=== PATIENT | female | born 1945 | race Caucasian/White ===

== ENCOUNTER 2020-07-21 12:16 | Inpatient (IN) ==
[2020-07-21] MEDS ORDERED: ALBUTEROL 2.5 MG/3 ML NEB RESP TX STA (13:00)
[2020-07-21] MEDS ORDERED: ALBUTEROL 2.5 MG/3 ML NEB RESP TX ONE (13:01)
[2020-07-21 14:02] LABS: Eosinophils % 0.2 % (0.00-10.9); Hematocrit 32.2 VOL% (35.7-47.0); Hemoglobin 9.2 GM/DL (12.0-16.0); Immature Granulocytes % 2.2 %; Lymphocytes # 0.9 10*3/uL (1.4-4.0); Lymphocytes % 19.7 % (21.3-54.2); Mean Corpuscular HGB Conc 28.6 GM/DL (32-36); Mean Corpuscular Volume 84.7 FL (87-102); Mean Platelet Volume 11.7 FL (9.6-12.0); Neutrophils % 69.9 % (38.7-73.9); Platelet Count 67 T/CUMM (130-400); Red Cell Distribution Width 17.1 % (9.3-17.3); White Blood Count 4.5 T/CUMM (4-12)
[2020-07-21 14:17] LABS: PT Patient Result 10.9 SECS (9.8-11.9)
[2020-07-21 14:22] LABS: Lactic Acid 1.1 MMOL/L (0.4-2.0)
[2020-07-21 14:25] LABS: Albumin 2.8 G/DL (3.4-5.0); Bilirubin,Total 1.4 MG/DL (0.2-1.0); Calcium 8.7 MG/DL (8.5-10.1); Osmolality,Calculated 289.1 MOS/KG (273-304); Potassium 5.2 MMOL/L (3.5-5.1); Total Protein 6.3 G/DL (6.4-8.3)
[2020-07-21] MEDS ORDERED: SODIUM CHLORIDE 0.9% 1,000 ML IV STA (14:43)
[2020-07-21] MEDS ORDERED: LEVOFLOXACIN INJ 500 MG in PREMIX 1 EACH IV STA (14:51)
[2020-07-21] MEDS ORDERED: DEXTROSE 50% 25 GM/50 ML VIAL IV PRN (15:21)
[2020-07-21] MEDS ORDERED: ACETAMINOPHEN 325 MG TABLET PO PRN (15:21)
[2020-07-21] MEDS ORDERED: ONDANSETRON 4 MG/2 ML VIAL IV PRN (15:21)
[2020-07-21] MEDS ORDERED: BISACODYL 5 MG TABLET PO PRN (15:21)
[2020-07-21] MEDS ORDERED: GLUCAGON 1 MG VIAL IM PRN (15:21)
[2020-07-21] MEDS ORDERED: tiZANidine 4 MG TABLET PO PRN (15:28)
[2020-07-21] MEDS ORDERED: traZODone 50 MG TABLET PO PRN (15:28)
[2020-07-21] MEDS ORDERED: AZITHROMYCIN INJ 500 MG in SODIUM CHLORIDE 0.9% 250 ML IV ONE (15:30)
[2020-07-21 16:06] LABS: Amorphous Crystals,Urine Occasional /HPF (Few); Bacteria,Urine Moderate /HPF (Few); Bilirubin,Urine Negative (Negative); Blood, Urine Negative (Negative); Glucose,Urine (UA) Negative (Negative); Ketones,Urine Negative (Negative); Nitrite,Urine Negative (Negative); Protein,Urine Negative; Squamous Epithelial Cell,Urine Occasional /HPF (0-10); Urine Appearance CLEAR (Clear); Urine Color Yellow (Yellow); Urine Specific Gravity 1.018 (1.001-1.035); Urine Urobilinogen < 2.0 EU/DL (0.2-1.0); WBC,Urine 15 /HPF (0-6)
[2020-07-21] MEDS: PIPERACILLIN/TAZOBACTAM 3,375 MG in SODIUM CHLORIDE 0.9% 100 ML IV SCH (18:24)
[2020-07-21] MEDS: INSULIN LISPRO 100 UNIT/ML SUBCUT SCH ×2 (18:24→21:16)
[2020-07-21] MEDS: SODIUM CHLORIDE 0.9% 1,000 ML IV SCH (18:34)
[2020-07-21] MEDS: DEXAMETHASONE 4 MG/1 ML VIAL IV SCH (18:34)
[2020-07-21] MEDS: ASCORBIC ACID 500 MG TABLET PO SCH (21:14)
[2020-07-21] MEDS: ENOXAPARIN 30 MG/0.3 ML SYRINGE SUBCUT SCH (21:14)
[2020-07-21] MEDS: CHOLECALCIFEROL 1,000 UNIT TABLET PO SCH (21:15)
[2020-07-21] MEDS: rOPINIRole 1 MG TABLET PO SCH (21:15)
[2020-07-21] MEDS: GABAPENTIN 300 MG CAPSULE PO SCH (21:15)
[2020-07-21] MEDS: MONTELUKAST 10 MG TABLET PO SCH (21:15)
[2020-07-21] MEDS: VITAMIN E PO SCH (21:16)
[2020-07-22] MEDS: PIPERACILLIN/TAZOBACTAM 3,375 MG in SODIUM CHLORIDE 0.9% 100 ML IV SCH ×3 (00:20→16:15)
[2020-07-22 05:44] LABS: Hematocrit 32.1 VOL% (35.7-47.0); Hemoglobin 9.6 GM/DL (12.0-16.0); Immature Granulocytes % 8.3 %; Immature Granulocytes Absolute 0.22 #; Lymphocytes # 0.2 10*3/uL (1.4-4.0); Lymphocytes % 7.9 % (21.3-54.2); Mean Corpuscular HGB Conc 29.9 GM/DL (32-36); Mean Corpuscular Volume 81.9 FL (87-102); Mean Platelet Volume 11.2 FL (9.6-12.0); Monocytes % 1.5 % (1.7-12.7); Neutrophils % 82.3 % (38.7-73.9); Red Blood Count 3.92 MC/CUMM (3.8-5.5); Red Cell Distribution Width 17.1 % (9.3-17.3); White Blood Count 2.7 T/CUMM (4-12)
[2020-07-22 05:47] LABS: Platelet Count 76 T/CUMM (130-400)
[2020-07-22 06:00] LABS: PT Patient Result 10.9 SECS (9.8-11.9)
[2020-07-22 06:25] LABS: Albumin 2.8 G/DL (3.4-5.0); Bilirubin,Total 0.8 MG/DL (0.2-1.0); Calcium 9.1 MG/DL (8.5-10.1); Osmolality,Calculated 299.7 MOS/KG (273-304); Total Protein 6.9 G/DL (6.4-8.3)
[2020-07-22 06:32] LABS: Ferritin 160.1 ng/ml (8-252)
[2020-07-22 06:40] LABS: Lymphocytes 5 % (20-55); Metamyelocytes 1 %; Segmented Neutrophils 92 % (50-85); Total Cells Counted 100
[2020-07-22 06:41] LABS: Platelet Estimate Decreased
[2020-07-22] MEDS: INSULIN LISPRO 100 UNIT/ML SUBCUT SCH ×4 (07:27→20:31)
[2020-07-22] MEDS: ALBUTEROL 2.5 MG/3 ML NEB RESP TX PRN ×2 (08:30→18:20)
[2020-07-22] MEDS: DEXAMETHASONE 4 MG/1 ML VIAL IV SCH (09:02)
[2020-07-22] MEDS: PANTOPRAZOLE 40 MG TABLET PO SCH (09:03)
[2020-07-22] MEDS: ASCORBIC ACID 500 MG TABLET PO SCH ×2 (09:03→20:30)
[2020-07-22] MEDS: VENLAFAXINE XR 75 MG CAPSULE PO SCH (09:03)
[2020-07-22] MEDS: CYANOCOBALAMIN 500 MCG TABLET PO SCH (09:03)
[2020-07-22] MEDS: AZITHROMYCIN 250 MG TABLET PO SCH (09:03)
[2020-07-22] MEDS: GABAPENTIN 300 MG CAPSULE PO SCH ×2 (09:04→20:30)
[2020-07-22] MEDS: ZINC GLUCONATE 50 MG TABLET PO SCH (09:04)
[2020-07-22] MEDS: SODIUM CHLORIDE 0.9% 1,000 ML IV SCH (12:15)
[2020-07-22] MEDS: VITAMIN E PO SCH (18:34)
[2020-07-22] MEDS: MONTELUKAST 10 MG TABLET PO SCH (20:30)
[2020-07-22] MEDS: CHOLECALCIFEROL 1,000 UNIT TABLET PO SCH (20:30)
[2020-07-22] MEDS: rOPINIRole 1 MG TABLET PO SCH (20:30)
[2020-07-22] MEDS: ENOXAPARIN 30 MG/0.3 ML SYRINGE SUBCUT SCH (20:31)
[2020-07-23] MEDS: SODIUM CHLORIDE 0.9% 1,000 ML IV SCH
[2020-07-23 05:50] LABS: Hematocrit 29.8 VOL% (35.7-47.0); Hemoglobin 8.8 GM/DL (12.0-16.0); Immature Granulocytes Absolute 0.16 #; Lymphocytes # 0.5 10*3/uL (1.4-4.0); Lymphocytes % 17.6 % (21.3-54.2); Mean Corpuscular HGB Conc 29.5 GM/DL (32-36); Mean Corpuscular Volume 82.8 FL (87-102); Mean Platelet Volume 11.3 FL (9.6-12.0); Monocytes % 5.6 % (1.7-12.7); Neutrophils % 70.8 % (38.7-73.9); Platelet Count 83 T/CUMM (130-400); Red Cell Distribution Width 17.2 % (9.3-17.3); White Blood Count 2.7 T/CUMM (4-12)
[2020-07-23 06:12] LABS: Albumin 2.8 G/DL (3.4-5.0); Bilirubin,Total 1.2 MG/DL (0.2-1.0); Calcium 9.6 MG/DL (8.5-10.1); Hypochromasia 1+; Lymphocytes 18 % (20-55); Microcytosis 1+; Osmolality,Calculated 301.1 MOS/KG (273-304); Ovalocytes Slight; Platelet Estimate Decreased; Potassium 4.7 MMOL/L (3.5-5.1); Segmented Neutrophils 77 % (50-85); Total Cells Counted 100; Total Protein 6.6 G/DL (6.4-8.3)
[2020-07-23] MEDS: INSULIN LISPRO 100 UNIT/ML SUBCUT SCH ×4 (08:34→21:06)
[2020-07-23] MEDS: ASCORBIC ACID 500 MG TABLET PO SCH ×2 (08:35→21:07)
[2020-07-23] MEDS: CYANOCOBALAMIN 500 MCG TABLET PO SCH (08:35)
[2020-07-23] MEDS: ZINC GLUCONATE 50 MG TABLET PO SCH (08:35)
[2020-07-23] MEDS: AZITHROMYCIN 250 MG TABLET PO SCH (08:35)
[2020-07-23] MEDS: VENLAFAXINE XR 75 MG CAPSULE PO SCH (08:36)
[2020-07-23] MEDS: GABAPENTIN 300 MG CAPSULE PO SCH ×2 (08:36→21:07)
[2020-07-23] MEDS: PANTOPRAZOLE 40 MG TABLET PO SCH (08:36)
[2020-07-23] MEDS: oxyCODONE/ACETAMINOPHEN 5-325 MG TABLET PO PRN (08:36)
[2020-07-23] MEDS: DEXAMETHASONE 4 MG/1 ML VIAL IV SCH (08:37)
[2020-07-23] MEDS: PIPERACILLIN/TAZOBACTAM 3,375 MG in SODIUM CHLORIDE 0.9% 100 ML IV SCH ×3 (08:37→16:43)
[2020-07-23] MEDS: ALBUTEROL/IPRATROPIUM 3 ML NEB RESP TX SCH ×3 (12:50→19:02)
[2020-07-23] MEDS: MONTELUKAST 10 MG TABLET PO SCH (21:07)
[2020-07-23] MEDS: rOPINIRole 1 MG TABLET PO SCH (21:07)
[2020-07-23] MEDS: CHOLECALCIFEROL 1,000 UNIT TABLET PO SCH (21:07)
[2020-07-23] MEDS: ATORVASTATIN 10 MG TABLET PO SCH (21:07)
[2020-07-23] MEDS: ENOXAPARIN 30 MG/0.3 ML SYRINGE SUBCUT SCH (21:07)
[2020-07-24] MEDS: PIPERACILLIN/TAZOBACTAM 3,375 MG in SODIUM CHLORIDE 0.9% 100 ML IV SCH ×3 (00:12→21:38)
[2020-07-24] MEDS: ALBUTEROL/IPRATROPIUM 3 ML NEB RESP TX SCH ×4 (00:27→19:33)
[2020-07-24 06:42] LABS: Hematocrit 30.1 VOL% (35.7-47.0); Hemoglobin 8.8 GM/DL (12.0-16.0); Immature Granulocytes % 4.4 %; Immature Granulocytes Absolute 0.13 #; Lymphocytes # 0.7 10*3/uL (1.4-4.0); Mean Corpuscular HGB Conc 29.2 GM/DL (32-36); Mean Corpuscular Volume 82.7 FL (87-102); Mean Platelet Volume 9.9 FL (9.6-12.0); Monocytes % 6.8 % (1.7-12.7); Neutrophils % 66.8 % (38.7-73.9); Red Blood Count 3.64 MC/CUMM (3.8-5.5); Red Cell Distribution Width 17.5 % (9.3-17.3)
[2020-07-24 06:43] LABS: Platelet Count 95 T/CUMM (130-400)
[2020-07-24 07:08] LABS: Calcium 9.7 MG/DL (8.5-10.1); Osmolality,Calculated 302.8 MOS/KG (273-304)
[2020-07-24] MEDS: INSULIN LISPRO 100 UNIT/ML SUBCUT SCH ×4 (07:55→21:41)
[2020-07-24] MEDS: PANTOPRAZOLE 40 MG TABLET PO SCH (09:04)
[2020-07-24] MEDS: methylPREDNISolone SOD SUC 40 MG/1 ML VIAL IV SCH ×2 (09:04→21:37)
[2020-07-24] MEDS: LOSARTAN 25 MG TABLET PO SCH (09:04)
[2020-07-24] MEDS: AZITHROMYCIN 250 MG TABLET PO SCH (09:04)
[2020-07-24] MEDS: ZINC GLUCONATE 50 MG TABLET PO SCH (09:04)
[2020-07-24] MEDS: GABAPENTIN 300 MG CAPSULE PO SCH ×2 (09:04→21:39)
[2020-07-24] MEDS: ASCORBIC ACID 500 MG TABLET PO SCH ×2 (09:04→21:39)
[2020-07-24] MEDS: VENLAFAXINE XR 75 MG CAPSULE PO SCH (09:04)
[2020-07-24] MEDS: CYANOCOBALAMIN 500 MCG TABLET PO SCH (12:15)
[2020-07-24] MEDS: ENOXAPARIN 30 MG/0.3 ML SYRINGE SUBCUT SCH (21:38)
[2020-07-24] MEDS: oxyCODONE/ACETAMINOPHEN 5-325 MG TABLET PO PRN (21:38)
[2020-07-24] MEDS: ATORVASTATIN 10 MG TABLET PO SCH (21:39)
[2020-07-24] MEDS: CHOLECALCIFEROL 1,000 UNIT TABLET PO SCH (21:39)
[2020-07-24] MEDS: MONTELUKAST 10 MG TABLET PO SCH (21:40)
[2020-07-24] MEDS: rOPINIRole 1 MG TABLET PO SCH (21:40)
[2020-07-25] MEDS: ALBUTEROL/IPRATROPIUM 3 ML NEB RESP TX SCH ×4 (01:05→19:47)
[2020-07-25 06:43] LABS: Osmolality,Calculated 302.3 MOS/KG (273-304); Potassium 4.5 MMOL/L (3.5-5.1)
[2020-07-25 06:51] LABS: Basophils % 0.4 % (0.0-0.8); Eosinophils % 0.4 % (0.00-10.9); Hematocrit 32.7 VOL% (35.7-47.0); Hemoglobin 9.7 GM/DL (12.0-16.0); Immature Granulocytes % 9.8 %; Immature Granulocytes Absolute 0.27 #; Lymphocytes # 0.4 10*3/uL (1.4-4.0); Lymphocytes % 12.7 % (21.3-54.2); Mean Corpuscular HGB Conc 29.7 GM/DL (32-36); Mean Corpuscular Volume 82.8 FL (87-102); Monocytes % 2.9 % (1.7-12.7); NRBC # 0.02 10*3/uL; Neutrophils % 73.8 % (38.7-73.9); Platelet Count 102 T/CUMM (130-400); Red Blood Count 3.95 MC/CUMM (3.8-5.5); Red Cell Distribution Width 17.5 % (9.3-17.3); White Blood Count 2.8 T/CUMM (4-12)
[2020-07-25] MEDS: methylPREDNISolone SOD SUC 40 MG/1 ML VIAL IV SCH ×2 (09:05→20:58)
[2020-07-25] MEDS: PANTOPRAZOLE 40 MG TABLET PO SCH (09:05)
[2020-07-25] MEDS: GABAPENTIN 300 MG CAPSULE PO SCH ×2 (09:05→20:53)
[2020-07-25] MEDS: INSULIN LISPRO 100 UNIT/ML SUBCUT SCH ×4 (09:05→20:55)
[2020-07-25] MEDS: ASCORBIC ACID 500 MG TABLET PO SCH ×2 (09:06→20:53)
[2020-07-25] MEDS: PIPERACILLIN/TAZOBACTAM 3,375 MG in SODIUM CHLORIDE 0.9% 100 ML IV SCH ×2 (09:09→21:05)
[2020-07-25] MEDS: LOSARTAN 25 MG TABLET PO SCH (09:09)
[2020-07-25] MEDS: ZINC GLUCONATE 50 MG TABLET PO SCH (09:09)
[2020-07-25] MEDS: CYANOCOBALAMIN 500 MCG TABLET PO SCH (09:09)
[2020-07-25] MEDS: VENLAFAXINE XR 75 MG CAPSULE PO SCH (09:09)
[2020-07-25] MEDS: AZITHROMYCIN 250 MG TABLET PO SCH (09:09)
[2020-07-25 15:29] LABS: Band Neutrophils 4 % (0-10); Lymphocytes 21 % (20-55); Segmented Neutrophils 71 % (50-85); Total Cells Counted 100
[2020-07-25 15:30] LABS: Hypochromasia 1+; Ovalocytes Slight; Platelet Estimate Adequate
[2020-07-25] MEDS: ATORVASTATIN 10 MG TABLET PO SCH (20:53)
[2020-07-25] MEDS: MONTELUKAST 10 MG TABLET PO SCH (20:53)
[2020-07-25] MEDS: CHOLECALCIFEROL 1,000 UNIT TABLET PO SCH (20:53)
[2020-07-25] MEDS: rOPINIRole 1 MG TABLET PO SCH (20:53)
[2020-07-25] MEDS: ENOXAPARIN 30 MG/0.3 ML SYRINGE SUBCUT SCH (20:55)
[2020-07-25] MEDS ORDERED: INSULIN GLARGINE 100 UNIT/ML SUBCUT SCH (21:00)
[2020-07-25] MEDS ORDERED: BENZONATATE 100 MG CAPSULE PO PRN (23:38)
[2020-07-26] MEDS: ALBUTEROL/IPRATROPIUM 3 ML NEB RESP TX SCH ×4 (01:15→18:59)
[2020-07-26 06:38] LABS: Calcium 10.2 MG/DL (8.5-10.1); Osmolality,Calculated 303.5 MOS/KG (273-304); Potassium 4.5 MMOL/L (3.5-5.1)
[2020-07-26] MEDS: ZINC GLUCONATE 50 MG TABLET PO SCH (08:22)
[2020-07-26] MEDS: GABAPENTIN 300 MG CAPSULE PO SCH ×2 (08:23→20:34)
[2020-07-26] MEDS: VENLAFAXINE XR 75 MG CAPSULE PO SCH (08:23)
[2020-07-26] MEDS: LOSARTAN 25 MG TABLET PO SCH (08:23)
[2020-07-26] MEDS: CYANOCOBALAMIN 500 MCG TABLET PO SCH (08:23)
[2020-07-26] MEDS: ASCORBIC ACID 500 MG TABLET PO SCH ×2 (08:23→20:33)
[2020-07-26] MEDS: PIPERACILLIN/TAZOBACTAM 3,375 MG in SODIUM CHLORIDE 0.9% 100 ML IV SCH ×2 (08:24→20:40)
[2020-07-26] MEDS: methylPREDNISolone SOD SUC 40 MG/1 ML VIAL IV SCH ×2 (08:24→20:36)
[2020-07-26] MEDS: INSULIN LISPRO 100 UNIT/ML SUBCUT SCH ×4 (08:24→20:38)
[2020-07-26] MEDS: PANTOPRAZOLE 40 MG TABLET PO SCH (08:24)
[2020-07-26] MEDS ORDERED: INSULIN GLARGINE 100 UNIT/ML SUBCUT SCH (11:10)
[2020-07-26] MEDS: MONTELUKAST 10 MG TABLET PO SCH (20:33)
[2020-07-26] MEDS: rOPINIRole 1 MG TABLET PO SCH (20:34)
[2020-07-26] MEDS: ATORVASTATIN 10 MG TABLET PO SCH (20:34)
[2020-07-26] MEDS: CHOLECALCIFEROL 1,000 UNIT TABLET PO SCH (20:34)
[2020-07-26] MEDS: ENOXAPARIN 30 MG/0.3 ML SYRINGE SUBCUT SCH (20:38)
[2020-07-27] MEDS: ALBUTEROL/IPRATROPIUM 3 ML NEB RESP TX SCH ×2 (00:46→07:13)
[2020-07-27 04:49] LABS: Albumin 2.8 G/DL (3.4-5.0); Bilirubin,Total 0.5 MG/DL (0.2-1.0); Calcium 9.6 MG/DL (8.5-10.1); Osmolality,Calculated 305.3 MOS/KG (273-304); Potassium 4.6 MMOL/L (3.5-5.1); Total Protein 6.6 G/DL (6.4-8.3)
[2020-07-27 05:05] LABS: Basophils % 0.3 % (0.0-0.8); Hematocrit 31.8 VOL% (35.7-47.0); Hemoglobin 9.2 GM/DL (12.0-16.0); Immature Granulocytes % 8.6 %; Immature Granulocytes Absolute 0.31 #; Lymphocytes # 0.4 10*3/uL (1.4-4.0); Mean Corpuscular HGB Conc 28.9 GM/DL (32-36); Mean Corpuscular Volume 83.7 FL (87-102); Mean Platelet Volume 9.9 FL (9.6-12.0); Monocytes % 2.5 % (1.7-12.7); NRBC # 0.05 10*3/uL; Neutrophils % 76.6 % (38.7-73.9); Platelet Count 107 T/CUMM (130-400); Red Cell Distribution Width 17.3 % (9.3-17.3); White Blood Count 3.6 T/CUMM (4-12)
[2020-07-27 07:13] LABS: Band Neutrophils 4 % (0-10); Lymphocytes 9 % (20-55); Nucleated Red Blood Cells 1 (0-5); Segmented Neutrophils 84 % (50-85); Total Cells Counted 100
[2020-07-27 07:14] LABS: Microcytosis 1+; Ovalocytes 2+; Platelet Estimate Normal
[2020-07-27 07:15] LABS: Tear Drop Cells Few
[2020-07-27 07:16] LABS: Polychromasia Slight
[2020-07-27 07:38] VITALS: BP 114/70
[2020-07-27] MEDS: PIPERACILLIN/TAZOBACTAM 3,375 MG in SODIUM CHLORIDE 0.9% 100 ML IV SCH (08:35)
[2020-07-27] MEDS: LOSARTAN 25 MG TABLET PO SCH (08:36)
[2020-07-27] MEDS: CYANOCOBALAMIN 500 MCG TABLET PO SCH (08:36)
[2020-07-27] MEDS: PANTOPRAZOLE 40 MG TABLET PO SCH (08:36)
[2020-07-27] MEDS: VENLAFAXINE XR 75 MG CAPSULE PO SCH (08:36)
[2020-07-27] MEDS: GABAPENTIN 300 MG CAPSULE PO SCH (08:36)
[2020-07-27] MEDS: methylPREDNISolone SOD SUC 40 MG/1 ML VIAL IV SCH (08:37)
[2020-07-27] MEDS: INSULIN LISPRO 100 UNIT/ML SUBCUT SCH (08:37)
[2020-07-27] MEDS: ASCORBIC ACID 500 MG TABLET PO SCH (08:37)
[2020-07-27] MEDS: ZINC GLUCONATE 50 MG TABLET PO SCH (08:37)
== END 2020-07-27 13:38 | disposition home or self-care (01) | DRG 194 ==
LOC: N.EDINP 12:16 → N.ED 12:16 → SUATTDRO 15:21 → N.EDINP 17:39 → N.5E 18:08
PROVIDERS: ADMIT Internal Medicine; ATTEND Internal Medicine

== ENCOUNTER 2020-11-17 03:44 | Observation (INO) ==
[2020-11-17 04:54] LABS: Alanine Aminotransferase 23 U/L (13-56); Albumin 3.5 G/DL (3.4-5.0); Alkaline Phosphatase 79 U/L (45-117); Amylase 112 U/L (25-115); Aspartate Amino Transferase 14 U/L (0-37); Bilirubin,Total < 0.39 MG/DL (0.2-1.0); Blood Urea Nitrogen 44 MG/DL (7-18); Calcium 10.1 MG/DL (8.5-10.1); Carbon Dioxide 26 MMOL/L (21-32); Glucose 168 MG/DL (74-106); Osmolality,Calculated 291.5 MOS/KG (273-304); Potassium 3.8 MMOL/L (3.5-5.1); Sodium 139 MMOL/L (136-145)
[2020-11-17 04:55] LABS: Estimated Glom Filtration Rate 0 ML/MIN
[2020-11-17] MEDS ORDERED: PIPERACILLIN/TAZOBACTAM 3,375 MG in SODIUM CHLORIDE 0.9% 100 ML IV STA (05:07)
[2020-11-17] MEDS ORDERED: ONDANSETRON 4 MG/2 ML VIAL IV STA (05:09)
[2020-11-17] MEDS ORDERED: MEPERIDINE 25 MG/1 ML VIAL IV STA (05:09)
[2020-11-17 05:47] LABS: Eosinophils % 0.5 % (0.00-10.9); Hematocrit 37.6 VOL% (35.7-47.0); Immature Granulocytes % 1.5 %; Immature Granulocytes Absolute 0.06 #; Lymphocytes # 0.7 10*3/uL (1.4-4.0); Lymphocytes % 18.3 % (21.3-54.2); Mean Corpuscular HGB Conc 29.5 GM/DL (32-36); Mean Corpuscular Volume 80.3 FL (87-102); Monocytes % 8.2 % (1.7-12.7); Neutrophils % 71.5 % (38.7-73.9); Red Blood Count 4.68 MC/CUMM (3.8-5.5); Red Cell Distribution Width 14.8 % (9.3-17.3); White Blood Count 3.9 T/CUMM (4-12)
[2020-11-17 05:49] LABS: Hemoglobin 11.1 GM/DL (12.0-16.0)
[2020-11-17 05:50] LABS: Platelet Count 81 T/CUMM (130-400)
[2020-11-17 05:54] LABS: Hypochromasia Slight; Microcytosis Slight; Ovalocytes Slight; Platelet Estimate Decreased
[2020-11-17] MEDS ORDERED: ACETAMINOPHEN 325 MG TABLET PO PRN (06:16)
[2020-11-17] MEDS ORDERED: GLUCAGON 1 MG VIAL IM PRN ×2 (06:16)
[2020-11-17] MEDS ORDERED: ONDANSETRON 4 MG/2 ML VIAL IV PRN (06:16)
[2020-11-17] MEDS ORDERED: DEXTROSE 50% 25 GM/50 ML VIAL IV PRN ×2 (06:16)
[2020-11-17] MEDS: CLINDAMYCIN INJ 600 MG/50 ML PREMIX IV SCH ×3 (07:43→21:59)
[2020-11-17] MEDS ORDERED: PANTOPRAZOLE 40 MG TABLET PO SCH (09:00)
[2020-11-17] MEDS: HEPARIN 5,000 UNIT/1 ML VIAL SUBCUT SCH ×2 (09:08→21:13)
[2020-11-17] MEDS: INSULIN LISPRO 100 UNIT/ML SUBCUT SCH ×4 (09:08→21:12)
[2020-11-17] MEDS: CHLORHEXIDINE 0.12% ORAL RINSE 60 ML BOTTLE SWISH/SPIT SCH ×2 (12:46→21:23)
[2020-11-17] MEDS ORDERED: tiZANidine 4 MG TABLET PO PRN (15:10)
[2020-11-17] MEDS ORDERED: ATORVASTATIN 10 MG TABLET PO SCH (21:00)
[2020-11-18] MEDS: CLINDAMYCIN INJ 600 MG/50 ML PREMIX IV SCH (05:49)
[2020-11-18] MEDS: HEPARIN 5,000 UNIT/1 ML VIAL SUBCUT SCH (06:14)
[2020-11-18 06:40] LABS: Eosinophils % 0.7 % (0.00-10.9); Hematocrit 36.3 VOL% (35.7-47.0); Immature Granulocytes % 1.4 %; Immature Granulocytes Absolute 0.04 #; Lymphocytes # 0.8 10*3/uL (1.4-4.0); Lymphocytes % 26.4 % (21.3-54.2); Mean Corpuscular HGB Conc 30.3 GM/DL (32-36); Mean Corpuscular Volume 79.4 FL (87-102); Monocytes % 11.3 % (1.7-12.7); Neutrophils % 60.2 % (38.7-73.9); Platelet Count 63 T/CUMM (130-400); Red Blood Count 4.57 MC/CUMM (3.8-5.5); Red Cell Distribution Width 14.9 % (9.3-17.3); White Blood Count 2.8 T/CUMM (4-12)
[2020-11-18 06:49] LABS: Alanine Aminotransferase 17 U/L (13-56); Alkaline Phosphatase 68 U/L (45-117); Aspartate Amino Transferase 11 U/L (0-37); Bilirubin,Total < 0.39 MG/DL (0.2-1.0); Blood Urea Nitrogen 35 MG/DL (7-18); Calcium 9.7 MG/DL (8.5-10.1); Carbon Dioxide 24 MMOL/L (21-32); Estimated Glom Filtration Rate 25 ML/MIN; Glucose 159 MG/DL (74-106); Osmolality,Calculated 285.7 MOS/KG (273-304); Potassium 3.6 MMOL/L (3.5-5.1); Sodium 138 MMOL/L (136-145); Total Protein 6.5 G/DL (6.4-8.2)
[2020-11-18 06:59] LABS: Hypochromasia Slight; Microcytosis Slight; Ovalocytes Slight; Platelet Estimate Decreased
[2020-11-18] MEDS: CHLORHEXIDINE 0.12% ORAL RINSE 60 ML BOTTLE SWISH/SPIT SCH (08:00)
[2020-11-18] MEDS: INSULIN LISPRO 100 UNIT/ML SUBCUT SCH ×2 (08:00→11:56)
[2020-11-18] MEDS ORDERED: PANTOPRAZOLE 40 MG TABLET PO SCH (09:00)
[2020-11-18] MEDS ORDERED: FERROUS SULFATE 325 MG TABLET PO SCH (09:00)
[2020-11-18] MEDS ORDERED: ASPIRIN EC 81 MG TABLET PO SCH (09:00)
[2020-11-18 12:09] VITALS: BP 181/67
== END 2020-11-18 13:21 | disposition home or self-care (01) ==
LOC: SUATTDRO → N.ED 03:44 → N.EDINP 03:44 → SUATTDRO 06:16 → N.5E 07:46
PROVIDERS: ADMIT Internal Medicine; ATTEND Internal Medicine

== ENCOUNTER 2021-04-07 05:31 | Inpatient (IN) ==
[2021-04-07] MEDS ORDERED: SODIUM CHLORIDE 0.9% 1,000 ML IV STA (06:15)
[2021-04-07] MEDS ORDERED: fentaNYL 100 MCG/2 ML VIAL IV STA ×3 (06:15→10:11)
[2021-04-07] MEDS ORDERED: ONDANSETRON 4 MG/2 ML VIAL IV STA ×2 (06:15→07:45)
[2021-04-07 06:42] LABS: Albumin 3.1 G/DL (3.4-5.0); Bilirubin,Total 0.7 MG/DL (0.20-1.00); Calcium 10.5 MG/DL (8.5-10.1); Potassium 3.8 MMOL/L (3.5-5.1); Total Protein 7.3 G/DL (6.4-8.2)
[2021-04-07 07:05] LABS: Basophils % 0.1 % (0.0-0.8); Eosinophils % 0.1 % (0.00-10.9); Hematocrit 40.9 VOL% (35.7-47.0); Hemoglobin 12.2 GM/DL (12.0-16.0); Immature Granulocytes % 1.6 %; Immature Granulocytes Absolute 0.12 #; Lymphocytes # 0.7 10*3/uL (1.4-4.0); Lymphocytes % 9.5 % (21.3-54.2); Mean Corpuscular HGB Conc 29.8 GM/DL (32-36); Mean Corpuscular Volume 77.8 FL (87-102); Monocytes % 5.8 % (1.7-12.7); Neutrophils % 82.9 % (38.7-73.9); Platelet Count 95 T/CUMM (130-400); Red Blood Count 5.26 MC/CUMM (3.8-5.5); Red Cell Distribution Width 15.6 % (9.3-17.3); White Blood Count 7.4 T/CUMM (4-12)
[2021-04-07] MEDS ORDERED: metroNIDAZOLE INJ 500 MG/100 ML PREMIX IV STA (07:11)
[2021-04-07] MEDS ORDERED: LEVOFLOXACIN INJ 500 MG/100 ML PREMIX IV STA (07:11)
[2021-04-07 07:12] LABS: Hypochromasia 1+; Microcytosis 1+
[2021-04-07 07:13] LABS: Ovalocytes Few; Platelet Estimate Decreased
[2021-04-07 08:00] LABS: Bacteria,Urine Many /HPF (Few); Bilirubin,Urine Negative (Negative); Blood, Urine Negative (Negative); Glucose,Urine (UA) Negative (Negative); Ketones,Urine 5 mg/dL (Negative); Nitrite,Urine Negative (Negative); Protein,Urine 100 MG/DL; RBC,Urine 1 /HPF (0-4); Squamous Epithelial Cell,Urine Occasional /HPF (0-10); Urine Appearance Slightly Hazy (Clear); Urine Color Yellow (Yellow); Urine Specific Gravity 1.017 (1.001-1.035); Urine Urobilinogen < 2.0 EU/DL (0.2-1.0)
[2021-04-07] MEDS: LACTATED RINGERS 1,000 ML IV SCH ×2 (08:15→15:18)
[2021-04-07] MEDS ORDERED: ALBUTEROL/IPRATROPIUM 3 ML NEB RESP TX PRN (09:06)
[2021-04-07] MEDS ORDERED: ONDANSETRON 4 MG/2 ML VIAL IV PRN (09:06)
[2021-04-07] MEDS ORDERED: GLUCAGON 1 MG VIAL IM PRN (09:16)
[2021-04-07] MEDS ORDERED: DEXTROSE 50% 25 GM/50 ML VIAL IV PRN (09:16)
[2021-04-07] MEDS ORDERED: LEVOFLOXACIN INJ 750 MG/150 ML PREMIX IV SCH (09:30)
[2021-04-07] MEDS ORDERED: ALBUTEROL 2.5 MG/3 ML NEB RESP TX PRN (12:18)
[2021-04-07] MEDS: oxyCODONE/ACETAMINOPHEN 5-325 MG TABLET PO PRN ×2 (13:48→17:58)
[2021-04-07] MEDS: INSULIN LISPRO 100 UNIT/ML SUBCUT SCH ×2 (14:27→16:30)
[2021-04-07] MEDS: metroNIDAZOLE INJ 500 MG/100 ML PREMIX IV SCH ×2 (14:58→16:30)
[2021-04-07] MEDS: rOPINIRole 1 MG TABLET PO SCH (18:39)
[2021-04-07] MEDS: tiZANidine 4 MG TABLET PO SCH (21:45)
[2021-04-07] MEDS: MONTELUKAST 10 MG TABLET PO SCH (21:45)
[2021-04-08] MEDS: LACTATED RINGERS 1,000 ML IV SCH ×2 (00:25→11:22)
[2021-04-08] MEDS: metroNIDAZOLE INJ 500 MG/100 ML PREMIX IV SCH ×3 (05:01→17:17)
[2021-04-08 05:49] LABS: Hematocrit 34.8 VOL% (35.7-47.0); Immature Granulocytes % 1.9 %; Immature Granulocytes Absolute 0.19 #; Lymphocytes # 0.6 10*3/uL (1.4-4.0); Lymphocytes % 5.6 % (21.3-54.2); Mean Corpuscular HGB Conc 28.4 GM/DL (32-36); Mean Corpuscular Volume 80.7 FL (87-102); Mean Platelet Volume 11.6 FL (9.6-12.0); Monocytes % 6.1 % (1.7-12.7); Neutrophils % 86.4 % (38.7-73.9); Platelet Count 79 T/CUMM (130-400); Red Blood Count 4.31 MC/CUMM (3.8-5.5); Red Cell Distribution Width 15.3 % (9.3-17.3); White Blood Count 10.3 T/CUMM (4-12)
[2021-04-08 05:52] LABS: Hemoglobin 9.9 GM/DL (12.0-16.0)
[2021-04-08 06:10] LABS: Hypochromasia 1+
[2021-04-08 06:11] LABS: Microcytosis 1+; Ovalocytes Few; Platelet Estimate Decreased
[2021-04-08 06:12] LABS: Calcium 9.3 MG/DL (8.5-10.1); Osmolality,Calculated 287.7 MOS/KG (273-304); Potassium 4.1 MMOL/L (3.5-5.1)
[2021-04-08] MEDS: VENLAFAXINE XR 75 MG CAPSULE PO SCH (09:50)
[2021-04-08] MEDS: PANTOPRAZOLE 40 MG TABLET PO SCH (09:50)
[2021-04-08] MEDS: FERROUS SULFATE 325 MG TABLET PO SCH (09:51)
[2021-04-08] MEDS: tiZANidine 4 MG TABLET PO SCH ×2 (09:51→21:33)
[2021-04-08] MEDS: ASPIRIN EC 81 MG TABLET PO SCH (09:51)
[2021-04-08] MEDS: LOSARTAN 25 MG TABLET PO SCH (09:51)
[2021-04-08] MEDS: INSULIN LISPRO 100 UNIT/ML SUBCUT SCH ×3 (11:22→16:57)
[2021-04-08] MEDS: oxyCODONE/ACETAMINOPHEN 5-325 MG TABLET PO PRN (13:36)
[2021-04-08] MEDS: rOPINIRole 1 MG TABLET PO SCH (21:33)
[2021-04-08] MEDS: MONTELUKAST 10 MG TABLET PO SCH (21:33)
[2021-04-08] MEDS: traZODone 50 MG TABLET PO PRN (21:34)
[2021-04-09] MEDS: rOPINIRole 1 MG TABLET PO SCH ×2 (02:43→22:36)
[2021-04-09] MEDS: metroNIDAZOLE INJ 500 MG/100 ML PREMIX IV SCH ×3 (02:50→17:39)
[2021-04-09] MEDS: LACTATED RINGERS 1,000 ML IV SCH ×5 (05:08→22:39)
[2021-04-09] MEDS: INSULIN LISPRO 100 UNIT/ML SUBCUT SCH ×3 (07:59→17:30)
[2021-04-09] MEDS ORDERED: INFLUENZA VIRUS VACCINE 0.5 ML SYRINGE IM ONE (08:00)
[2021-04-09] MEDS: tiZANidine 4 MG TABLET PO SCH ×2 (08:31→22:36)
[2021-04-09] MEDS: VENLAFAXINE XR 75 MG CAPSULE PO SCH (08:31)
[2021-04-09] MEDS: PANTOPRAZOLE 40 MG TABLET PO SCH (08:31)
[2021-04-09] MEDS: LOSARTAN 25 MG TABLET PO SCH (08:31)
[2021-04-09] MEDS: FERROUS SULFATE 325 MG TABLET PO SCH (08:31)
[2021-04-09] MEDS: ASPIRIN EC 81 MG TABLET PO SCH (08:32)
[2021-04-09] MEDS: LEVOFLOXACIN INJ 500 MG/100 ML PREMIX IV SCH (10:34)
[2021-04-09] MEDS: oxyCODONE/ACETAMINOPHEN 5-325 MG TABLET PO PRN ×2 (17:43→22:38)
[2021-04-09] MEDS: MONTELUKAST 10 MG TABLET PO SCH (22:36)
[2021-04-10] MEDS: metroNIDAZOLE INJ 500 MG/100 ML PREMIX IV SCH ×3 (01:30→17:55)
[2021-04-10] MEDS: oxyCODONE/ACETAMINOPHEN 5-325 MG TABLET PO PRN ×4 (04:13→20:54)
[2021-04-10 08:10] LABS: Hemoglobin 9.1 GM/DL (12.0-16.0); Immature Granulocytes % 1.9 %; Immature Granulocytes Absolute 0.08 #; Lymphocytes # 0.5 10*3/uL (1.4-4.0); Lymphocytes % 11.3 % (21.3-54.2); Mean Corpuscular HGB Conc 29.4 GM/DL (32-36); Mean Corpuscular Volume 80.3 FL (87-102); Mean Platelet Volume 11.5 FL (9.6-12.0); Monocytes % 5.5 % (1.7-12.7); Neutrophils % 81.3 % (38.7-73.9); Platelet Count 94 T/CUMM (130-400); Red Blood Count 3.86 MC/CUMM (3.8-5.5); Red Cell Distribution Width 15.1 % (9.3-17.3); White Blood Count 4.2 T/CUMM (4-12)
[2021-04-10 08:16] LABS: Calcium 9.2 MG/DL (8.5-10.1); Potassium 3.7 MMOL/L (3.5-5.1)
[2021-04-10 08:27] LABS: Hypochromasia 1+; Microcytosis 1+; Ovalocytes Few; Tear Drop Cells Slight
[2021-04-10 08:28] LABS: Platelet Estimate Decreased
[2021-04-10] MEDS: PANTOPRAZOLE 40 MG TABLET PO SCH (09:25)
[2021-04-10] MEDS: tiZANidine 4 MG TABLET PO SCH ×2 (09:25→20:54)
[2021-04-10] MEDS: LOSARTAN 25 MG TABLET PO SCH (09:25)
[2021-04-10] MEDS: VENLAFAXINE XR 75 MG CAPSULE PO SCH (09:26)
[2021-04-10] MEDS: ASPIRIN EC 81 MG TABLET PO SCH (09:26)
[2021-04-10] MEDS: FERROUS SULFATE 325 MG TABLET PO SCH (09:26)
[2021-04-10] MEDS: LACTATED RINGERS 1,000 ML IV SCH ×3 (09:31→21:40)
[2021-04-10] MEDS: INSULIN LISPRO 100 UNIT/ML SUBCUT SCH ×3 (10:09→16:15)
[2021-04-10] MEDS: traZODone 50 MG TABLET PO PRN (20:54)
[2021-04-10] MEDS: rOPINIRole 1 MG TABLET PO SCH (20:54)
[2021-04-10] MEDS: MONTELUKAST 10 MG TABLET PO SCH (20:54)
[2021-04-11] MEDS: metroNIDAZOLE INJ 500 MG/100 ML PREMIX IV SCH ×3 (02:40→17:11)
[2021-04-11] MEDS: oxyCODONE/ACETAMINOPHEN 5-325 MG TABLET PO PRN ×3 (04:48→20:58)
[2021-04-11 05:15] LABS: Hematocrit 31.3 VOL% (35.7-47.0); Hemoglobin 9.2 GM/DL (12.0-16.0); Immature Granulocytes Absolute 0.07 #; Lymphocytes # 0.6 10*3/uL (1.4-4.0); Lymphocytes % 16.2 % (21.3-54.2); Mean Corpuscular HGB Conc 29.4 GM/DL (32-36); Mean Corpuscular Volume 79.8 FL (87-102); Mean Platelet Volume 10.5 FL (9.6-12.0); Monocytes % 6.9 % (1.7-12.7); Neutrophils % 74.9 % (38.7-73.9); Red Blood Count 3.92 MC/CUMM (3.8-5.5); Red Cell Distribution Width 15.1 % (9.3-17.3); White Blood Count 3.5 T/CUMM (4-12)
[2021-04-11 05:30] LABS: Platelet Count 97 T/CUMM (130-400)
[2021-04-11 05:39] LABS: Calcium 9.4 MG/DL (8.5-10.1); Osmolality,Calculated 288.7 MOS/KG (273-304); Potassium 4.1 MMOL/L (3.5-5.1)
[2021-04-11 05:43] LABS: Albumin 2.3 G/DL (3.4-5.0); Bilirubin,Total 0.5 MG/DL (0.20-1.00); Calcium 9.2 MG/DL (8.5-10.1); Osmolality,Calculated 292.4 MOS/KG (273-304); Potassium 4.1 MMOL/L (3.5-5.1); Total Protein 5.9 G/DL (6.4-8.2)
[2021-04-11 05:47] LABS: Hypochromasia 1+; Microcytosis 1+
[2021-04-11 05:48] LABS: Ovalocytes 1+; Platelet Estimate Decreased
[2021-04-11] MEDS: LEVOFLOXACIN INJ 500 MG/100 ML PREMIX IV SCH (09:15)
[2021-04-11] MEDS: INSULIN LISPRO 100 UNIT/ML SUBCUT SCH ×3 (09:16→17:10)
[2021-04-11] MEDS: PANTOPRAZOLE 40 MG TABLET PO SCH (09:16)
[2021-04-11] MEDS: tiZANidine 4 MG TABLET PO SCH ×2 (09:16→20:58)
[2021-04-11] MEDS: VENLAFAXINE XR 75 MG CAPSULE PO SCH (09:16)
[2021-04-11] MEDS: FERROUS SULFATE 325 MG TABLET PO SCH (09:16)
[2021-04-11] MEDS: LOSARTAN 25 MG TABLET PO SCH (09:16)
[2021-04-11] MEDS: ASPIRIN EC 81 MG TABLET PO SCH (09:16)
[2021-04-11] MEDS: LACTATED RINGERS 1,000 ML IV SCH ×4 (09:18→22:54)
[2021-04-11] MEDS: BISACODYL 5 MG TABLET PO PRN (20:57)
[2021-04-11] MEDS: MONTELUKAST 10 MG TABLET PO SCH (20:57)
[2021-04-11] MEDS: rOPINIRole 1 MG TABLET PO SCH (20:57)
[2021-04-11] MEDS: traZODone 50 MG TABLET PO PRN (20:57)
[2021-04-12] MEDS: metroNIDAZOLE INJ 500 MG/100 ML PREMIX IV SCH ×3 (01:13→17:23)
[2021-04-12] MEDS: LACTATED RINGERS 1,000 ML IV SCH ×3 (02:11→17:23)
[2021-04-12] MEDS: oxyCODONE/ACETAMINOPHEN 5-325 MG TABLET PO PRN ×4 (04:32→21:17)
[2021-04-12] MEDS: INSULIN LISPRO 100 UNIT/ML SUBCUT SCH ×3 (07:31→16:28)
[2021-04-12] MEDS: VENLAFAXINE XR 75 MG CAPSULE PO SCH (08:39)
[2021-04-12] MEDS: LOSARTAN 25 MG TABLET PO SCH (08:39)
[2021-04-12] MEDS: PANTOPRAZOLE 40 MG TABLET PO SCH (08:40)
[2021-04-12] MEDS: FERROUS SULFATE 325 MG TABLET PO SCH (08:40)
[2021-04-12] MEDS: ASPIRIN EC 81 MG TABLET PO SCH (08:40)
[2021-04-12] MEDS: tiZANidine 4 MG TABLET PO SCH ×2 (08:40→21:17)
[2021-04-12] MEDS: traZODone 50 MG TABLET PO PRN (21:17)
[2021-04-12] MEDS: rOPINIRole 1 MG TABLET PO SCH (21:17)
[2021-04-12] MEDS: BISACODYL 5 MG TABLET PO PRN (21:17)
[2021-04-12] MEDS: MONTELUKAST 10 MG TABLET PO SCH (21:17)
[2021-04-13] MEDS: oxyCODONE/ACETAMINOPHEN 5-325 MG TABLET PO PRN ×4 (02:32→20:16)
[2021-04-13] MEDS: metroNIDAZOLE INJ 500 MG/100 ML PREMIX IV SCH ×2 (02:33→08:38)
[2021-04-13] MEDS: LACTATED RINGERS 1,000 ML IV SCH ×2 (02:35→08:48)
[2021-04-13 05:13] LABS: Eosinophils % 0.3 % (0.00-10.9); Hemoglobin 8.1 GM/DL (12.0-16.0); Immature Granulocytes % 3.8 %; Immature Granulocytes Absolute 0.13 #; Lymphocytes # 0.7 10*3/uL (1.4-4.0); Lymphocytes % 19.5 % (21.3-54.2); Mean Corpuscular HGB Conc 28.9 GM/DL (32-36); Mean Corpuscular Volume 80.9 FL (87-102); Mean Platelet Volume 10.7 FL (9.6-12.0); Monocytes % 8.8 % (1.7-12.7); Neutrophils % 67.6 % (38.7-73.9); Red Blood Count 3.46 MC/CUMM (3.8-5.5); Red Cell Distribution Width 15.6 % (9.3-17.3); White Blood Count 3.4 T/CUMM (4-12)
[2021-04-13 05:14] LABS: Platelet Count 84 T/CUMM (130-400)
[2021-04-13 05:33] LABS: Eosinophils 1 % (0-10); Hypochromasia 1+; Lymphocytes 22 % (20-55); Segmented Neutrophils 71 % (50-85); Total Cells Counted 100
[2021-04-13 05:34] LABS: Atypical Lymphocytes Few; Microcytosis 1+; Ovalocytes 1+; Platelet Estimate Decreased
[2021-04-13 05:45] LABS: Calcium 8.8 MG/DL (8.5-10.1); Osmolality,Calculated 289.1 MOS/KG (273-304)
[2021-04-13] MEDS: INSULIN LISPRO 100 UNIT/ML SUBCUT SCH ×3 (07:14→16:37)
[2021-04-13] MEDS: LOSARTAN 25 MG TABLET PO SCH (08:37)
[2021-04-13] MEDS: ASPIRIN EC 81 MG TABLET PO SCH (08:37)
[2021-04-13] MEDS: PANTOPRAZOLE 40 MG TABLET PO SCH (08:37)
[2021-04-13] MEDS: FERROUS SULFATE 325 MG TABLET PO SCH (08:37)
[2021-04-13] MEDS: tiZANidine 4 MG TABLET PO SCH ×2 (08:37→20:17)
[2021-04-13] MEDS: VENLAFAXINE XR 75 MG CAPSULE PO SCH (08:37)
[2021-04-13] MEDS: LEVOFLOXACIN INJ 500 MG/100 ML PREMIX IV SCH (09:46)
[2021-04-13] MEDS ORDERED: FUROSEMIDE 40 MG/4 ML VIAL IV ONE (10:42)
[2021-04-13] MEDS: MEROPENEM 500 MG in SODIUM CHLORIDE 0.9% 100 ML IV SCH ×2 (14:59→23:19)
[2021-04-13] MEDS: traZODone 50 MG TABLET PO PRN (20:16)
[2021-04-13] MEDS: MONTELUKAST 10 MG TABLET PO SCH (20:16)
[2021-04-13] MEDS: rOPINIRole 1 MG TABLET PO SCH (20:16)
[2021-04-14] MEDS: oxyCODONE/ACETAMINOPHEN 5-325 MG TABLET PO PRN ×2 (07:24→15:06)
[2021-04-14] MEDS: MEROPENEM 500 MG in SODIUM CHLORIDE 0.9% 100 ML IV SCH ×3 (07:25→23:40)
[2021-04-14] MEDS: INSULIN LISPRO 100 UNIT/ML SUBCUT SCH ×3 (07:46→17:10)
[2021-04-14] MEDS: FERROUS SULFATE 325 MG TABLET PO SCH (09:12)
[2021-04-14] MEDS: LOSARTAN 25 MG TABLET PO SCH (09:12)
[2021-04-14] MEDS: tiZANidine 4 MG TABLET PO SCH ×2 (09:12→21:25)
[2021-04-14] MEDS: VENLAFAXINE XR 75 MG CAPSULE PO SCH (09:12)
[2021-04-14] MEDS: PANTOPRAZOLE 40 MG TABLET PO SCH (09:12)
[2021-04-14] MEDS: ASPIRIN EC 81 MG TABLET PO SCH (09:12)
[2021-04-14] MEDS: rOPINIRole 1 MG TABLET PO SCH (21:25)
[2021-04-14] MEDS: MONTELUKAST 10 MG TABLET PO SCH (21:25)
[2021-04-14] MEDS: ACETAMINOPHEN 325 MG TABLET PO PRN (21:25)
[2021-04-14] MEDS: traZODone 50 MG TABLET PO PRN (21:25)
[2021-04-15] MEDS: MEROPENEM 500 MG in SODIUM CHLORIDE 0.9% 100 ML IV SCH ×2 (08:57→16:51)
[2021-04-15] MEDS: INSULIN LISPRO 100 UNIT/ML SUBCUT SCH ×3 (08:58→16:53)
[2021-04-15] MEDS: ACETAMINOPHEN 325 MG TABLET PO PRN (08:58)
[2021-04-15] MEDS: FERROUS SULFATE 325 MG TABLET PO SCH (14:18)
[2021-04-15] MEDS: ASPIRIN EC 81 MG TABLET PO SCH (14:18)
[2021-04-15] MEDS: PANTOPRAZOLE 40 MG TABLET PO SCH (14:18)
[2021-04-15] MEDS: LOSARTAN 25 MG TABLET PO SCH (14:18)
[2021-04-15] MEDS: VENLAFAXINE XR 75 MG CAPSULE PO SCH (14:19)
[2021-04-15] MEDS: tiZANidine 4 MG TABLET PO SCH ×2 (14:19→21:13)
[2021-04-15] MEDS: oxyCODONE/ACETAMINOPHEN 5-325 MG TABLET PO PRN ×2 (14:20→21:16)
[2021-04-15] MEDS: FUROSEMIDE 20 MG TABLET PO PRN (16:56)
[2021-04-15] MEDS: MONTELUKAST 10 MG TABLET PO SCH (21:13)
[2021-04-15] MEDS: rOPINIRole 1 MG TABLET PO SCH (21:13)
[2021-04-15] MEDS: traZODone 50 MG TABLET PO PRN (21:13)
[2021-04-16] MEDS: MEROPENEM 500 MG in SODIUM CHLORIDE 0.9% 100 ML IV SCH ×4 (00:07→22:33)
[2021-04-16] MEDS ORDERED: CLINDAMYCIN INJ 900 MG/50 ML PREMIX IV ONE ×2 (07:23→15:45)
[2021-04-16 08:30] LABS: Eosinophils % 0.6 % (0.00-10.9); Hematocrit 30.9 VOL% (35.7-47.0); Hemoglobin 9.1 GM/DL (12.0-16.0); Immature Granulocytes % 5.4 %; Immature Granulocytes Absolute 0.09 #; Lymphocytes # 0.5 10*3/uL (1.4-4.0); Lymphocytes % 32.5 % (21.3-54.2); Mean Corpuscular HGB Conc 29.4 GM/DL (32-36); Mean Corpuscular Volume 79.4 FL (87-102); Mean Platelet Volume 10.4 FL (9.6-12.0); Monocytes % 15.1 % (1.7-12.7); Neutrophils % 46.4 % (38.7-73.9); Platelet Count 94 T/CUMM (130-400); Red Blood Count 3.89 MC/CUMM (3.8-5.5); Red Cell Distribution Width 15.5 % (9.3-17.3); White Blood Count 1.7 T/CUMM (4-12)
[2021-04-16 08:50] LABS: Calcium 9.2 MG/DL (8.5-10.1); Osmolality,Calculated 284.4 MOS/KG (273-304); Potassium 4.8 MMOL/L (3.5-5.1)
[2021-04-16 08:52] LABS: Atypical Lymphocytes Few; Hypochromasia 1+; Lymphocytes 26 % (20-55); Microcytosis 1+; Platelet Estimate Decreased; Segmented Neutrophils 58 % (50-85); Total Cells Counted 100
[2021-04-16] MEDS: ASPIRIN EC 81 MG TABLET PO SCH (10:02)
[2021-04-16] MEDS: LOSARTAN 25 MG TABLET PO SCH (10:02)
[2021-04-16] MEDS: PANTOPRAZOLE 40 MG TABLET PO SCH (10:03)
[2021-04-16] MEDS: tiZANidine 4 MG TABLET PO SCH ×2 (10:03→21:09)
[2021-04-16] MEDS: VENLAFAXINE XR 75 MG CAPSULE PO SCH (10:03)
[2021-04-16] MEDS: FERROUS SULFATE 325 MG TABLET PO SCH (10:03)
[2021-04-16] MEDS: oxyCODONE/ACETAMINOPHEN 5-325 MG TABLET PO PRN ×2 (10:42→23:57)
[2021-04-16] MEDS: INSULIN LISPRO 100 UNIT/ML SUBCUT SCH ×3 (10:47→16:18)
[2021-04-16] MEDS: FUROSEMIDE 20 MG TABLET PO PRN (12:00)
[2021-04-16] MEDS ORDERED: ROCURONIUM 50 MG/5 ML VIAL IV ONE ×2 (15:44→16:52)
[2021-04-16] MEDS ORDERED: LIDOCAINE 2% 5 ML VIAL ONE (15:44)
[2021-04-16] MEDS ORDERED: fentaNYL 100 MCG/2 ML VIAL ONE ×2 (15:44→17:03)
[2021-04-16] MEDS ORDERED: DEXAMETHASONE 4 MG/1 ML VIAL ONE (15:44)
[2021-04-16] MEDS ORDERED: SEVOFLURANE 1 UNIT/15 MINUTE INH ONE ×8 (15:44→18:25)
[2021-04-16] MEDS ORDERED: MIDAZOLAM 2 MG/2 ML VIAL ONE (15:44)
[2021-04-16] MEDS ORDERED: propofoL 200 MG/20 ML VIAL IV ONE (15:44)
[2021-04-16] MEDS ORDERED: ONDANSETRON 4 MG/2 ML VIAL ONE (15:44)
[2021-04-16] MEDS ORDERED: PROMETHAZINE INJ 25 MG in SODIUM CHLORIDE 0.9% 50 ML IV PRN (16:45)
[2021-04-16] MEDS ORDERED: diphenhydrAMINE 50 MG/1 ML VIAL IV PRN (16:45)
[2021-04-16] MEDS ORDERED: HYDROmorphone 2 MG/1 ML VIAL IV PRN (16:45)
[2021-04-16] MEDS ORDERED: ONDANSETRON 4 MG/2 ML VIAL IV PRN (16:45)
[2021-04-16] MEDS ORDERED: GLYCOPYRROLATE 0.4 MG/2 ML VIAL ONE (17:53)
[2021-04-16] MEDS ORDERED: NEOSTIGMINE 10 MG/10 ML VIAL ONE (17:53)
[2021-04-16] MEDS ORDERED: NALOXONE 0.4 MG/ML VIAL IV PRN (18:24)
[2021-04-16] MEDS ORDERED: HYDROmorphone PCA 30 MG/30 ML SYRINGE IV SCH (18:30)
[2021-04-16] MEDS: MEPERIDINE 25 MG/1 ML VIAL IV PRN ×2 (18:35→18:45)
[2021-04-16] MEDS ORDERED: PROMETHAZINE 25 MG/1 ML VIAL ONE (18:42)
[2021-04-16 19:01] LABS: Bilirubin,Urine Negative (Negative); Blood, Urine Negative (Negative); Glucose,Urine (UA) Negative (Negative); Hyaline Casts,Urine 1 /LPF (0-3); Ketones,Urine Negative (Negative); Mucus,Urine Occasional /LPF (Occasional); Nitrite,Urine Negative (Negative); Protein,Urine Negative; RBC,Urine 2 /HPF (0-4); Squamous Epithelial Cell,Urine Occasional /HPF (0-10); Urine Appearance CLEAR (Clear); Urine Color Straw (Yellow); Urine Specific Gravity 1.006 (1.001-1.035); Urine Urobilinogen < 2.0 EU/DL (0.2-1.0)
[2021-04-16] MEDS: rOPINIRole 1 MG TABLET PO SCH (21:09)
[2021-04-16] MEDS: MONTELUKAST 10 MG TABLET PO SCH (21:09)
[2021-04-16] MEDS: HYDROmorphone 2 MG/1 ML VIAL IV PRN (22:29)
[2021-04-17] MEDS: HYDROmorphone 2 MG/1 ML VIAL IV PRN ×5 (02:37→19:09)
[2021-04-17] MEDS: oxyCODONE/ACETAMINOPHEN 5-325 MG TABLET PO PRN (03:46)
[2021-04-17] MEDS: MEROPENEM 500 MG in SODIUM CHLORIDE 0.9% 100 ML IV SCH ×3 (06:00→23:40)
[2021-04-17 09:09] LABS: Hematocrit 27.6 VOL% (35.7-47.0); Hemoglobin 8.1 GM/DL (12.0-16.0); Immature Granulocytes % 2.5 %; Lymphocytes # 0.6 10*3/uL (1.4-4.0); Lymphocytes % 15.8 % (21.3-54.2); Mean Corpuscular HGB Conc 29.3 GM/DL (32-36); Mean Corpuscular Volume 78.9 FL (87-102); Mean Platelet Volume 9.7 FL (9.6-12.0); Monocytes % 9.7 % (1.7-12.7); Platelet Count 110 T/CUMM (130-400); Red Cell Distribution Width 15.7 % (9.3-17.3); White Blood Count 3.9 T/CUMM (4-12)
[2021-04-17 09:18] LABS: Calcium 8.8 MG/DL (8.5-10.1); Osmolality,Calculated 287.7 MOS/KG (273-304); Potassium 4.9 MMOL/L (3.5-5.1)
[2021-04-17] MEDS: INSULIN LISPRO 100 UNIT/ML SUBCUT SCH ×3 (09:51→16:14)
[2021-04-17] MEDS: tiZANidine 4 MG TABLET PO SCH ×2 (09:52→20:49)
[2021-04-17] MEDS: VENLAFAXINE XR 75 MG CAPSULE PO SCH (09:52)
[2021-04-17] MEDS: LOSARTAN 25 MG TABLET PO SCH (09:53)
[2021-04-17] MEDS: PANTOPRAZOLE 40 MG TABLET PO SCH (09:53)
[2021-04-17] MEDS: FERROUS SULFATE 325 MG TABLET PO SCH (09:54)
[2021-04-17] MEDS: rOPINIRole 1 MG TABLET PO SCH (20:48)
[2021-04-17] MEDS: MONTELUKAST 10 MG TABLET PO SCH (20:48)
[2021-04-17] MEDS: traZODone 50 MG TABLET PO PRN (20:49)
[2021-04-18] MEDS: HYDROmorphone 2 MG/1 ML VIAL IV PRN ×2 (00:13→08:59)
[2021-04-18] MEDS: LACTATED RINGERS 1,000 ML IV SCH ×3 (01:16→22:43)
[2021-04-18] MEDS: MEROPENEM 500 MG in SODIUM CHLORIDE 0.9% 100 ML IV SCH ×3 (07:16→23:13)
[2021-04-18] MEDS: oxyCODONE/ACETAMINOPHEN 5-325 MG TABLET PO PRN ×3 (07:23→21:12)
[2021-04-18] MEDS: INSULIN LISPRO 100 UNIT/ML SUBCUT SCH ×3 (07:54→17:10)
[2021-04-18] MEDS: PANTOPRAZOLE 40 MG TABLET PO SCH (08:52)
[2021-04-18] MEDS: tiZANidine 4 MG TABLET PO SCH ×2 (08:53→21:12)
[2021-04-18] MEDS: VENLAFAXINE XR 75 MG CAPSULE PO SCH (08:53)
[2021-04-18] MEDS: LOSARTAN 25 MG TABLET PO SCH (08:53)
[2021-04-18] MEDS: FERROUS SULFATE 325 MG TABLET PO SCH (08:53)
[2021-04-18] MEDS: traZODone 50 MG TABLET PO PRN (21:11)
[2021-04-18] MEDS: MONTELUKAST 10 MG TABLET PO SCH (21:12)
[2021-04-18] MEDS: rOPINIRole 1 MG TABLET PO SCH (21:12)
[2021-04-19] MEDS: oxyCODONE/ACETAMINOPHEN 5-325 MG TABLET PO PRN ×3 (05:30→21:03)
[2021-04-19 05:45] LABS: Hematocrit 22.7 VOL% (35.7-47.0); Immature Granulocytes % 3.4 %; Immature Granulocytes Absolute 0.12 #; Lymphocytes # 0.7 10*3/uL (1.4-4.0); Mean Corpuscular HGB Conc 27.8 GM/DL (32-36); Mean Corpuscular Volume 81.7 FL (87-102); Mean Platelet Volume 10.5 FL (9.6-12.0); Monocytes % 9.8 % (1.7-12.7); Neutrophils % 67.8 % (38.7-73.9); Platelet Count 114 T/CUMM (130-400); Red Blood Count 2.78 MC/CUMM (3.8-5.5); Red Cell Distribution Width 15.9 % (9.3-17.3); White Blood Count 3.6 T/CUMM (4-12)
[2021-04-19 06:09] LABS: Calcium 8.3 MG/DL (8.5-10.1); Osmolality,Calculated 288.4 MOS/KG (273-304); Potassium 4.3 MMOL/L (3.5-5.1)
[2021-04-19 06:27] LABS: Hemoglobin 6.3 GM/DL (12.0-16.0)
[2021-04-19 06:49] LABS: Hypochromasia 3+; Microcytosis 2+; Ovalocytes Few
[2021-04-19 06:50] LABS: Elliptocytes Few; Platelet Estimate Adequate
[2021-04-19 06:58] LABS: Hematocrit 21.6 VOL% (35.7-47.0)
[2021-04-19 07:04] LABS: Hemoglobin 6.1 GM/DL (12.0-16.0)
[2021-04-19] MEDS ORDERED: SODIUM CHLORIDE 0.9% 1,000 ML IV PRN (07:15)
[2021-04-19] MEDS: LACTATED RINGERS 1,000 ML IV SCH (07:53)
[2021-04-19] MEDS: MEROPENEM 500 MG in SODIUM CHLORIDE 0.9% 100 ML IV SCH ×3 (08:03→23:15)
[2021-04-19] MEDS: INSULIN LISPRO 100 UNIT/ML SUBCUT SCH ×3 (08:10→19:25)
[2021-04-19] MEDS: FERROUS SULFATE 325 MG TABLET PO SCH (09:47)
[2021-04-19] MEDS: tiZANidine 4 MG TABLET PO SCH ×2 (09:47→20:58)
[2021-04-19] MEDS: LOSARTAN 25 MG TABLET PO SCH (09:47)
[2021-04-19] MEDS: VENLAFAXINE XR 75 MG CAPSULE PO SCH (09:48)
[2021-04-19] MEDS: PANTOPRAZOLE 40 MG TABLET PO SCH (09:48)
[2021-04-19] MEDS: MONTELUKAST 10 MG TABLET PO SCH (20:58)
[2021-04-19] MEDS: rOPINIRole 1 MG TABLET PO SCH (20:58)
[2021-04-19] MEDS: traZODone 50 MG TABLET PO PRN (20:59)
[2021-04-19 22:58] LABS: Hematocrit 26.8 VOL% (35.7-47.0); Hemoglobin 7.9 GM/DL (12.0-16.0)
[2021-04-20 05:57] LABS: Eosinophils % 0.3 % (0.00-10.9); Hematocrit 29.3 VOL% (35.7-47.0); Hemoglobin 8.7 GM/DL (12.0-16.0); Immature Granulocytes % 5.7 %; Immature Granulocytes Absolute 0.18 #; Lymphocytes # 0.6 10*3/uL (1.4-4.0); Mean Corpuscular HGB Conc 29.7 GM/DL (32-36); Mean Corpuscular Volume 82.8 FL (87-102); Mean Platelet Volume 10.7 FL (9.6-12.0); Monocytes % 10.1 % (1.7-12.7); Neutrophils % 64.9 % (38.7-73.9); Platelet Count 113 T/CUMM (130-400); Red Blood Count 3.54 MC/CUMM (3.8-5.5); White Blood Count 3.2 T/CUMM (4-12)
[2021-04-20 06:32] LABS: Calcium 8.5 MG/DL (8.5-10.1); Osmolality,Calculated 291.1 MOS/KG (273-304); Potassium 4.6 MMOL/L (3.5-5.1)
[2021-04-20 06:34] LABS: Anisocytosis 2+; Band Neutrophils 6 % (0-10); Burr Cells Few; Lymphocytes 18 % (20-55); Ovalocytes 1+; Platelet Estimate Adequate; Segmented Neutrophils 66 % (50-85); Total Cells Counted 100
[2021-04-20] MEDS: MEROPENEM 500 MG in SODIUM CHLORIDE 0.9% 100 ML IV SCH ×3 (07:42→23:21)
[2021-04-20] MEDS: ASPIRIN EC 81 MG TABLET PO SCH (08:07)
[2021-04-20] MEDS: tiZANidine 4 MG TABLET PO SCH ×2 (08:07→20:31)
[2021-04-20] MEDS: PANTOPRAZOLE 40 MG TABLET PO SCH (08:07)
[2021-04-20] MEDS: VENLAFAXINE XR 75 MG CAPSULE PO SCH (08:07)
[2021-04-20] MEDS: LOSARTAN 25 MG TABLET PO SCH (08:07)
[2021-04-20] MEDS: FERROUS SULFATE 325 MG TABLET PO SCH (08:07)
[2021-04-20] MEDS: FUROSEMIDE 20 MG TABLET PO PRN (08:07)
[2021-04-20] MEDS: LACTATED RINGERS 1,000 ML IV SCH ×2 (08:12→17:13)
[2021-04-20] MEDS: INSULIN LISPRO 100 UNIT/ML SUBCUT SCH ×3 (08:14→17:13)
[2021-04-20] MEDS: oxyCODONE/ACETAMINOPHEN 5-325 MG TABLET PO PRN ×2 (13:16→20:33)
[2021-04-20] MEDS: rOPINIRole 1 MG TABLET PO SCH (20:31)
[2021-04-20] MEDS: traZODone 50 MG TABLET PO PRN (20:31)
[2021-04-20] MEDS: MONTELUKAST 10 MG TABLET PO SCH (20:31)
[2021-04-21 05:37] LABS: Basophils % 0.3 % (0.0-0.8); Eosinophils % 0.3 % (0.00-10.9); Hematocrit 31.7 VOL% (35.7-47.0); Hemoglobin 9.3 GM/DL (12.0-16.0); Immature Granulocytes % 4.1 %; Immature Granulocytes Absolute 0.12 #; Lymphocytes # 0.8 10*3/uL (1.4-4.0); Lymphocytes % 26.4 % (21.3-54.2); Mean Corpuscular HGB Conc 29.3 GM/DL (32-36); Mean Corpuscular Volume 83.4 FL (87-102); Neutrophils % 57.9 % (38.7-73.9); Platelet Count 133 T/CUMM (130-400); Red Cell Distribution Width 16.1 % (9.3-17.3); White Blood Count 2.9 T/CUMM (4-12)
[2021-04-21 05:52] LABS: Calcium 8.5 MG/DL (8.5-10.1); Osmolality,Calculated 280.7 MOS/KG (273-304)
[2021-04-21] MEDS: oxyCODONE/ACETAMINOPHEN 5-325 MG TABLET PO PRN ×3 (06:19→21:51)
[2021-04-21] MEDS: LACTATED RINGERS 1,000 ML IV SCH ×2 (07:22→11:54)
[2021-04-21] MEDS: INSULIN LISPRO 100 UNIT/ML SUBCUT SCH ×3 (07:23→16:16)
[2021-04-21] MEDS: tiZANidine 4 MG TABLET PO SCH (08:13)
[2021-04-21] MEDS: PANTOPRAZOLE 40 MG TABLET PO SCH (08:13)
[2021-04-21] MEDS: LOSARTAN 25 MG TABLET PO SCH (08:14)
[2021-04-21] MEDS: VENLAFAXINE XR 75 MG CAPSULE PO SCH (08:14)
[2021-04-21] MEDS: ASPIRIN EC 81 MG TABLET PO SCH (08:14)
[2021-04-21] MEDS: FERROUS SULFATE 325 MG TABLET PO SCH (08:14)
[2021-04-21] MEDS: FUROSEMIDE 20 MG TABLET PO PRN (08:17)
[2021-04-21] MEDS ORDERED: MAGNESIUM SULF RIDER 2 GM/50 ML PREMIX IV PRN (09:59)
[2021-04-21] MEDS ORDERED: MAGNESIUM SULF RIDER 4 GM/100 ML PREMIX IV PRN (09:59)
[2021-04-21] MEDS ORDERED: FUROSEMIDE 20 MG/2 ML VIAL IV ONE (12:10)
[2021-04-21] MEDS: CIPROFLOXACIN 500 MG TABLET PO SCH ×2 (14:36→21:51)
[2021-04-21] MEDS: metroNIDAZOLE 500 MG TABLET PO SCH ×2 (14:37→16:16)
[2021-04-21] MEDS: FUROSEMIDE 20 MG TABLET PO SCH (16:16)
[2021-04-21] MEDS: MONTELUKAST 10 MG TABLET PO SCH (21:50)
[2021-04-21] MEDS: rOPINIRole 1 MG TABLET PO SCH (21:51)
[2021-04-21] MEDS: traZODone 50 MG TABLET PO PRN (21:51)
[2021-04-22] MEDS: ACETAMINOPHEN 325 MG TABLET PO PRN (03:22)
[2021-04-22] MEDS: oxyCODONE/ACETAMINOPHEN 5-325 MG TABLET PO PRN ×2 (03:25→09:41)
[2021-04-22] MEDS: metroNIDAZOLE 500 MG TABLET PO SCH ×2 (09:34→12:47)
[2021-04-22] MEDS: FERROUS SULFATE 325 MG TABLET PO SCH (09:35)
[2021-04-22] MEDS: FUROSEMIDE 20 MG TABLET PO SCH (09:36)
[2021-04-22] MEDS: ASPIRIN EC 81 MG TABLET PO SCH (09:37)
[2021-04-22] MEDS: CIPROFLOXACIN 500 MG TABLET PO SCH (09:38)
[2021-04-22] MEDS: PANTOPRAZOLE 40 MG TABLET PO SCH (09:38)
[2021-04-22] MEDS: LOSARTAN 25 MG TABLET PO SCH (09:38)
[2021-04-22] MEDS: VENLAFAXINE XR 75 MG CAPSULE PO SCH (09:39)
[2021-04-22] MEDS: INSULIN LISPRO 100 UNIT/ML SUBCUT SCH ×2 (10:54→14:08)
[2021-04-22 11:27] VITALS: BP 145/50
== END 2021-04-22 14:47 | disposition home health service (06) | DRG 330 ==
LOC: EDBD → EDUNIT# → N.ED 05:31 → N.EDINP 09:06 → N.3E 13:55
PROVIDERS: ADMIT Student in an Organized Health Care Education/Training Program; ATTEND Student in an Organized Health Care Education/Training Program

== ENCOUNTER 2021-09-30 14:27 | Inpatient (IN) ==
[2021-09-30] MEDS ORDERED: SODIUM CHLORIDE 0.9% 1,000 ML IV STA (16:44)
[2021-09-30 17:12] LABS: Mucus,Urine Occasional /LPF (Occasional); RBC,Urine 2 /HPF (0-4); Squamous Epithelial Cell,Urine Occasional /HPF (0-10)
[2021-09-30 17:13] LABS: Bilirubin,Urine Negative (Negative); Blood, Urine Negative (Negative); Glucose,Urine (UA) 100 mg/dL (Negative); Ketones,Urine Negative (Negative); Nitrite,Urine Negative (Negative); Protein,Urine Trace mg/dL (Negative); Urine Appearance Clear (Clear); Urine Color Yellow (Yellow); Urine Specific Gravity 1.015 (1.001-1.035); Urine Urobilinogen 0.2 eU/dL (<2.0)
[2021-09-30 17:42] LABS: Barbiturates Screen,Urine Negative (Negative); Benzodiazepines Screen,Urine Negative (Negative); Cannabinoid Screen,Urine Negative (Negative); Opiate Screen,Urine Negative (Negative); Phencyclidine Screen,Urine Negative (Negative)
[2021-09-30 18:08] LABS: Hematocrit 38.2 VOL% (35.7-47.0); Immature Granulocytes % 0.9 %; Immature Granulocytes Absolute 0.04 #; Mean Corpuscular HGB Conc 28.8 GM/DL (32-36); Mean Corpuscular Volume 80.6 FL (87-102); Monocytes # 0.2 10*3/uL (0.11-0.8); Monocytes % 5.3 % (1.7-12.7); Neutrophils % 70.8 % (38.7-73.9); Platelet Count 66 T/CUMM (130-400); Red Blood Count 4.74 MC/CUMM (3.8-5.5); Red Cell Distribution Width 15.3 % (9.3-17.3); White Blood Count 4.4 T/CUMM (4-12)
[2021-09-30 18:10] LABS: Albumin 3.5 G/DL (3.4-5.0); Bilirubin,Total 0.4 MG/DL (0.20-1.00); Calcium 11.4 MG/DL (8.5-10.1); Potassium 3.9 MMOL/L (3.5-5.1); Total Protein 6.9 G/DL (6.4-8.2)
[2021-09-30] MEDS ORDERED: CIPROFLOXACIN INJ 400 MG/200 ML PREMIX IV STA (18:19)
[2021-09-30 18:27] LABS: Anisocytosis 1+; Hypochromia 1+; Microcytosis 1+; Platelet Estimate Decreased
[2021-09-30] MEDS ORDERED: DEXTROSE 50% 25 GM/50 ML VIAL IV PRN (18:35)
[2021-09-30] MEDS ORDERED: ONDANSETRON 4 MG/2 ML VIAL IV PRN (18:35)
[2021-09-30] MEDS ORDERED: GLUCAGON 1 MG VIAL IM PRN ×2 (18:35)
[2021-09-30] MEDS ORDERED: ACETAMINOPHEN 325 MG TABLET PO PRN (18:35)
[2021-09-30] MEDS ORDERED: FUROSEMIDE 20 MG TABLET PO PRN (18:42)
[2021-09-30] MEDS ORDERED: DEXTROSE 10% 250 ML BAG IV PRN (18:46)
[2021-09-30] MEDS ORDERED: ALBUTEROL 2.5 MG/3 ML NEB RESP TX PRN (19:00)
[2021-09-30] MEDS ORDERED: hydrALAZINE 20 MG/1 ML VIAL IV STA (19:23)
[2021-09-30] MEDS ORDERED: tiZANidine 4 MG TABLET PO SCH (21:00)
[2021-09-30] MEDS: MONTELUKAST 10 MG TABLET PO SCH (21:17)
[2021-09-30] MEDS: ATORVASTATIN 10 MG TABLET PO SCH (21:17)
[2021-09-30] MEDS: oxyCODONE/ACETAMINOPHEN 5-325 MG TABLET PO SCH (21:18)
[2021-09-30] MEDS: rOPINIRole 1 MG TABLET PO SCH (21:18)
[2021-09-30] MEDS: ENOXAPARIN 30 MG/0.3 ML SYRINGE SUBCUT SCH (21:18)
[2021-09-30] MEDS: INSULIN REGULAR 100 UNIT/ML SUBCUT SCH (21:18)
[2021-10-01 05:17] LABS: Eosinophils % 0.3 % (0.00-10.9); Hematocrit 33.9 VOL% (35.7-47.0); Immature Granulocytes % 0.8 %; Immature Granulocytes Absolute 0.03 #; Lymphocytes # 1.1 10*3/uL (1.4-4.0); Lymphocytes % 27.1 % (21.3-54.2); Mean Corpuscular HGB Conc 29.5 GM/DL (32-36); Mean Corpuscular Volume 79.2 FL (87-102); Monocytes # 0.3 10*3/uL (0.11-0.8); Monocytes % 8.5 % (1.7-12.7); Neutrophils % 63.3 % (38.7-73.9); Platelet Count 74 T/CUMM (130-400); Red Blood Count 4.28 MC/CUMM (3.8-5.5); Red Cell Distribution Width 15.4 % (9.3-17.3); White Blood Count 3.9 T/CUMM (4-12)
[2021-10-01 05:40] LABS: Albumin 3.1 G/DL (3.4-5.0); Bilirubin,Total 0.4 MG/DL (0.20-1.00); Calcium 10.4 MG/DL (8.5-10.1); Osmolality,Calculated 291.5 MOS/KG (273-304); Potassium 3.9 MMOL/L (3.5-5.1); Total Protein 6.1 G/DL (6.4-8.2)
[2021-10-01 05:46] LABS: Platelet Estimate Decreased
[2021-10-01 05:47] LABS: Elliptocytes 1+
[2021-10-01] MEDS: oxyCODONE/ACETAMINOPHEN 5-325 MG TABLET PO SCH ×3 (09:03→22:14)
[2021-10-01] MEDS: PANTOPRAZOLE 40 MG TABLET PO SCH (09:04)
[2021-10-01] MEDS: CYANOCOBALAMIN 500 MCG TABLET PO SCH (09:05)
[2021-10-01] MEDS: LOSARTAN 25 MG TABLET PO SCH (09:06)
[2021-10-01] MEDS: FERROUS SULFATE 325 MG TABLET PO SCH (09:06)
[2021-10-01] MEDS: ASPIRIN EC 81 MG TABLET PO SCH (09:06)
[2021-10-01] MEDS: VENLAFAXINE XR 75 MG CAPSULE PO SCH (09:07)
[2021-10-01] MEDS: INSULIN REGULAR 100 UNIT/ML SUBCUT SCH ×4 (09:12→20:37)
[2021-10-01] MEDS ORDERED: CIPROFLOXACIN INJ 400 MG/200 ML PREMIX IV SCH (12:30)
[2021-10-01] MEDS: ATORVASTATIN 10 MG TABLET PO SCH (20:36)
[2021-10-01] MEDS: traZODone 50 MG TABLET PO PRN (20:37)
[2021-10-01] MEDS: METHENAMINE HIPPURATE 1 GM TABLET PO SCH (20:37)
[2021-10-01] MEDS: MONTELUKAST 10 MG TABLET PO SCH (20:37)
[2021-10-01] MEDS: rOPINIRole 1 MG TABLET PO SCH (20:37)
[2021-10-01] MEDS: ENOXAPARIN 30 MG/0.3 ML SYRINGE SUBCUT SCH (20:38)
[2021-10-01] MEDS: CHOLECALCIFEROL 1,000 UNIT TABLET PO SCH (20:40)
[2021-10-02 05:34] LABS: Calcium 10.3 MG/DL (8.5-10.1); Osmolality,Calculated 291.5 MOS/KG (273-304); Potassium 4.2 MMOL/L (3.5-5.1)
[2021-10-02 05:55] LABS: Elliptocytes 1+; Platelet Estimate Decreased
[2021-10-02 05:56] LABS: Tear Drop Cells 1+
[2021-10-02 06:02] LABS: Eosinophils % 0.3 % (0.00-10.9); Immature Granulocytes Absolute 0.03 #; Lymphocytes # 1.5 10*3/uL (1.4-4.0); Lymphocytes % 50.2 % (21.3-54.2); Mean Corpuscular HGB Conc 29.6 GM/DL (32-36); Mean Corpuscular Volume 80.5 FL (87-102); Monocytes # 0.3 10*3/uL (0.11-0.8); Monocytes % 11.7 % (1.7-12.7); Neutrophils % 36.8 % (38.7-73.9); Platelet Count 56 T/CUMM (130-400); Red Blood Count 3.99 MC/CUMM (3.8-5.5); Red Cell Distribution Width 15.4 % (9.3-17.3); White Blood Count 2.9 T/CUMM (4-12)
[2021-10-02 06:03] LABS: Hematocrit 32.1 VOL% (35.7-47.0); Hemoglobin 9.5 GM/DL (12.0-16.0)
[2021-10-02 06:37] LABS: Band Neutrophils 1 % (0-10); Lymphocytes 37 % (20-55); Total Cells Counted 100
[2021-10-02 06:38] LABS: Hypochromia 1+
[2021-10-02] MEDS: oxyCODONE/ACETAMINOPHEN 5-325 MG TABLET PO SCH ×3 (08:47→21:50)
[2021-10-02] MEDS: ASPIRIN EC 81 MG TABLET PO SCH (08:47)
[2021-10-02] MEDS: VENLAFAXINE XR 75 MG CAPSULE PO SCH (08:47)
[2021-10-02] MEDS: LOSARTAN 25 MG TABLET PO SCH (08:47)
[2021-10-02] MEDS: METHENAMINE HIPPURATE 1 GM TABLET PO SCH ×2 (08:47→20:20)
[2021-10-02] MEDS: FERROUS SULFATE 325 MG TABLET PO SCH (08:47)
[2021-10-02] MEDS: PANTOPRAZOLE 40 MG TABLET PO SCH (08:47)
[2021-10-02] MEDS: CYANOCOBALAMIN 500 MCG TABLET PO SCH (08:48)
[2021-10-02] MEDS: INSULIN REGULAR 100 UNIT/ML SUBCUT SCH ×4 (14:24→20:20)
[2021-10-02] MEDS: LACTATED RINGERS 1,000 ML IV SCH ×2 (14:30→17:31)
[2021-10-02] MEDS: rOPINIRole 1 MG TABLET PO SCH (20:20)
[2021-10-02] MEDS: ATORVASTATIN 10 MG TABLET PO SCH (20:20)
[2021-10-02] MEDS: CHOLECALCIFEROL 1,000 UNIT TABLET PO SCH (20:20)
[2021-10-02] MEDS: MONTELUKAST 10 MG TABLET PO SCH (20:20)
[2021-10-02] MEDS: traZODone 50 MG TABLET PO PRN (21:49)
[2021-10-03] MEDS: LACTATED RINGERS 1,000 ML IV SCH ×2 (05:00→12:49)
[2021-10-03] MEDS: INSULIN REGULAR 100 UNIT/ML SUBCUT SCH ×2 (08:06→12:48)
[2021-10-03 08:37] LABS: Eosinophils % 0.2 % (0.00-10.9); Hematocrit 36.8 VOL% (35.7-47.0); Hemoglobin 10.6 GM/DL (12.0-16.0); Immature Granulocytes % 1.2 %; Immature Granulocytes Absolute 0.05 #; Lymphocytes % 24.6 % (21.3-54.2); Mean Corpuscular HGB Conc 28.8 GM/DL (32-36); Mean Corpuscular Volume 81.1 FL (87-102); Monocytes # 0.3 10*3/uL (0.11-0.8); Monocytes % 7.1 % (1.7-12.7); Neutrophils % 66.9 % (38.7-73.9); Platelet Count 51 T/CUMM (130-400); Red Blood Count 4.54 MC/CUMM (3.8-5.5); Red Cell Distribution Width 15.3 % (9.3-17.3); White Blood Count 4.1 T/CUMM (4-12)
[2021-10-03 09:17] LABS: Alanine Aminotransferase 31 U/L (13-56); Albumin 3.1 G/DL (3.4-5.0); Alkaline Phosphatase 74 U/L (45-117); Aspartate Amino Transferase 39 U/L (0-37); Bilirubin,Total < 0.39 MG/DL (0.20-1.00); Blood Urea Nitrogen 50 MG/DL (7-18); Calcium 10.4 MG/DL (8.5-10.1); Carbon Dioxide 23 MMOL/L (21-32); Chloride 109 MMOL/L (98-107); Estimated Glom Filtration Rate 19 ML/MIN; Glucose 166 MG/DL (74-106); Osmolality,Calculated 291.7 MOS/KG (273-304); Sodium 138 MMOL/L (136-145); Total Protein 6.5 G/DL (6.4-8.2)
[2021-10-03] MEDS: CYANOCOBALAMIN 500 MCG TABLET PO SCH (10:35)
[2021-10-03] MEDS: PANTOPRAZOLE 40 MG TABLET PO SCH (10:35)
[2021-10-03] MEDS: LOSARTAN 25 MG TABLET PO SCH (10:35)
[2021-10-03] MEDS: FERROUS SULFATE 325 MG TABLET PO SCH (10:35)
[2021-10-03] MEDS: ASPIRIN EC 81 MG TABLET PO SCH (10:35)
[2021-10-03] MEDS: METHENAMINE HIPPURATE 1 GM TABLET PO SCH (10:35)
[2021-10-03] MEDS: oxyCODONE/ACETAMINOPHEN 5-325 MG TABLET PO SCH (10:35)
[2021-10-03] MEDS: VENLAFAXINE XR 75 MG CAPSULE PO SCH (10:35)
[2021-10-03 12:45] VITALS: BP 117/50
== END 2021-10-03 12:47 | disposition home or self-care (01) | DRG 640 ==
LOC: EDUNIT# → EDBD → N.EDINP 14:27 → N.ED 14:27 → N.5E 20:29 → SUATTDRO 10-02 13:33
PROVIDERS: ADMIT Internal Medicine; ATTEND Internal Medicine

== ENCOUNTER 2022-04-04 13:24 | Inpatient (IN) ==
[2022-04-04] MEDS ORDERED: SODIUM CHLORIDE 0.9% 1,000 ML IV STA (14:00)
[2022-04-04] MEDS ORDERED: VANCOMYCIN INJ 1,000 MG in SODIUM CHLORIDE 0.9% 250 ML IV STA (14:00)
[2022-04-04] MEDS ORDERED: PIPERACILLIN/TAZOBACTAM 3,375 MG in SODIUM CHLORIDE 0.9% 100 ML IV STA (14:00)
[2022-04-04 15:08] LABS: Eosinophils % 0.2 % (0.00-10.9); Hematocrit 32.6 VOL% (35.7-47.0); Hemoglobin 9.2 GM/DL (12.0-16.0); Immature Granulocytes % 1.1 %; Immature Granulocytes Absolute 0.05 #; Lymphocytes # 0.8 10*3/uL (1.4-4.0); Lymphocytes % 17.3 % (21.3-54.2); Mean Corpuscular HGB Conc 28.2 GM/DL (32-36); Mean Corpuscular Volume 80.5 FL (87-102); Mean Platelet Volume 11.8 FL (9.6-12.0); Monocytes # 0.3 10*3/uL (0.11-0.8); Monocytes % 6.3 % (1.7-12.7); Neutrophils % 75.1 % (38.7-73.9); Platelet Count 74 T/CUMM (130-400); Red Cell Distribution Width 16.1 % (9.3-17.3); White Blood Count 4.5 T/CUMM (4-12)
[2022-04-04 15:17] LABS: INR 0.9; PT Patient Result 10.4 SECS (10.1-12.1)
[2022-04-04 15:20] LABS: Alanine Aminotransferase 38 U/L (13-56); Albumin 2.8 G/DL (3.4-5.0); Alkaline Phosphatase 82 U/L (45-117); Aspartate Amino Transferase 14 U/L (0-37); Bilirubin,Total < 0.39 MG/DL (0.20-1.00); Blood Urea Nitrogen 39 MG/DL (7-18); Calcium 9.5 MG/DL (8.5-10.1); Carbon Dioxide 23 MMOL/L (21-32); Chloride 112 MMOL/L (98-107); Glucose 197 MG/DL (74-106); Potassium 3.5 MMOL/L (3.5-5.1); Red Blood Count 4.05 MC/CUMM (3.8-5.5); Sodium 143 MMOL/L (136-145); Total Protein 5.9 G/DL (6.4-8.2)
[2022-04-04] MEDS ORDERED: GLUCAGON 1 MG VIAL IM PRN (16:33)
[2022-04-04] MEDS ORDERED: ONDANSETRON 4 MG/2 ML VIAL IV PRN (16:33)
[2022-04-04] MEDS ORDERED: ACETAMINOPHEN 325 MG TABLET PO PRN (16:33)
[2022-04-04] MEDS ORDERED: DEXTROSE 10% 250 ML BAG IV PRN (16:48)
[2022-04-04] MEDS ORDERED: LEVOFLOXACIN INJ 500 MG/100 ML PREMIX IV SCH (17:00)
[2022-04-04] MEDS ORDERED: ALBUTEROL 2.5 MG/3 ML NEB RESP TX PRN (19:00)
[2022-04-04] MEDS: ALBUTEROL/IPRATROPIUM 3 ML NEB RESP TX SCH (19:19)
[2022-04-04] MEDS: tiZANidine 4 MG TABLET PO SCH (21:24)
[2022-04-04] MEDS: busPIRone 15 MG TABLET PO SCH (21:24)
[2022-04-04] MEDS: rOPINIRole 1 MG TABLET PO SCH (21:24)
[2022-04-04] MEDS: MELATONIN 3 MG TABLET PO SCH (21:24)
[2022-04-04] MEDS: traZODone 50 MG TABLET PO SCH (21:24)
[2022-04-04] MEDS: CHOLECALCIFEROL 1,000 UNIT TABLET PO SCH (21:25)
[2022-04-04] MEDS: oxyCODONE/ACETAMINOPHEN 5-325 MG TABLET PO SCH (21:25)
[2022-04-04] MEDS: HEPARIN 5,000 UNIT/1 ML VIAL SUBCUT SCH (21:25)
[2022-04-04] MEDS: INSULIN REGULAR 100 UNIT/ML SUBCUT SCH (21:31)
[2022-04-04 22:24] LABS: Bacteria,Urine Occasional /HPF (Few); Bilirubin,Urine Negative (Negative); Blood, Urine Small mg/dL (Negative); Glucose,Urine (UA) 50 mg/dL (Negative); Ketones,Urine Negative (Negative); Mucus,Urine Occasional /LPF (Occasional); Nitrite,Urine Negative (Negative); Protein,Urine 100 mg/dL (Negative); RBC,Urine 18 /HPF (0-4); Squamous Epithelial Cell,Urine Occasional /HPF (0-10); Urine Appearance CLEAR (Clear); Urine Color Yellow (Yellow); Urine Specific Gravity 1.014 (1.001-1.035); Urine Urobilinogen < 2.0 eU/dL (<2.0)
[2022-04-05] MEDS: ALBUTEROL/IPRATROPIUM 3 ML NEB RESP TX SCH ×4 (00:23→19:53)
[2022-04-05 05:55] LABS: Calcium 9.7 MG/DL (8.5-10.1); Potassium 3.3 MMOL/L (3.5-5.1)
[2022-04-05 06:11] LABS: Eosinophils % 0.3 % (0.00-10.9); Hematocrit 29.2 VOL% (35.7-47.0); Hemoglobin 8.5 GM/DL (12.0-16.0); Immature Granulocytes % 1.5 %; Immature Granulocytes Absolute 0.06 #; Lymphocytes # 0.8 10*3/uL (1.4-4.0); Lymphocytes % 20.3 % (21.3-54.2); Mean Corpuscular HGB Conc 29.1 GM/DL (32-36); Mean Corpuscular Volume 80.9 FL (87-102); Mean Platelet Volume 11.6 FL (9.6-12.0); Monocytes # 0.3 10*3/uL (0.11-0.8); Monocytes % 6.9 % (1.7-12.7); Platelet Count 72 T/CUMM (130-400); Red Blood Count 3.61 MC/CUMM (3.8-5.5); White Blood Count 3.9 T/CUMM (4-12)
[2022-04-05 06:16] LABS: Eosinophils 1 % (0-10); Hypochromia Slight; Lymphocytes 24 % (20-55); Microcytosis Slight; Ovalocytes Slight; Platelet Estimate Decreased; Total Cells Counted 100
[2022-04-05] MEDS: INSULIN REGULAR 100 UNIT/ML SUBCUT SCH ×4 (08:06→21:41)
[2022-04-05] MEDS ORDERED: PANTOPRAZOLE 40 MG TABLET PO SCH (09:00)
[2022-04-05] MEDS ORDERED: LOSARTAN 25 MG TABLET PO SCH (09:00)
[2022-04-05] MEDS: CYANOCOBALAMIN 500 MCG TABLET PO SCH (09:58)
[2022-04-05] MEDS: ASCORBIC ACID 500 MG TABLET PO SCH (09:58)
[2022-04-05] MEDS: FERROUS SULFATE 325 MG TABLET PO SCH (09:58)
[2022-04-05] MEDS: PANTOPRAZOLE 40 MG TABLET PO SCH (09:58)
[2022-04-05] MEDS: tiZANidine 4 MG TABLET PO SCH ×2 (09:58→21:40)
[2022-04-05] MEDS: HEPARIN 5,000 UNIT/1 ML VIAL SUBCUT SCH (09:59)
[2022-04-05] MEDS: busPIRone 15 MG TABLET PO SCH ×2 (09:59→21:39)
[2022-04-05] MEDS: oxyCODONE/ACETAMINOPHEN 5-325 MG TABLET PO SCH ×3 (10:00→21:41)
[2022-04-05] MEDS ORDERED: POTASSIUM CHLORIDE 20 MEQ TABLET PO ONE (15:53)
[2022-04-05] MEDS: traZODone 50 MG TABLET PO SCH (21:40)
[2022-04-05] MEDS: CHOLECALCIFEROL 1,000 UNIT TABLET PO SCH (21:40)
[2022-04-05] MEDS: MELATONIN 3 MG TABLET PO SCH (21:41)
[2022-04-05] MEDS: rOPINIRole 1 MG TABLET PO SCH (21:41)
[2022-04-06] MEDS: ALBUTEROL/IPRATROPIUM 3 ML NEB RESP TX SCH ×4 (00:17→19:25)
[2022-04-06 05:09] LABS: Calcium 9.8 MG/DL (8.5-10.1); Osmolality,Calculated 293.1 MOS/KG (273-304); Potassium 3.8 MMOL/L (3.5-5.1)
[2022-04-06 05:24] LABS: Eosinophils % 0.3 % (0.00-10.9); Hemoglobin 8.1 GM/DL (12.0-16.0); Immature Granulocytes % 1.9 %; Immature Granulocytes Absolute 0.06 #; Lymphocytes # 0.6 10*3/uL (1.4-4.0); Lymphocytes % 18.9 % (21.3-54.2); Mean Corpuscular Volume 80.1 FL (87-102); Monocytes # 0.2 10*3/uL (0.11-0.8); Monocytes % 4.7 % (1.7-12.7); Neutrophils % 74.2 % (38.7-73.9); Platelet Count 84 T/CUMM (130-400); Red Blood Count 3.61 MC/CUMM (3.8-5.5); Red Cell Distribution Width 16.2 % (9.3-17.3); White Blood Count 3.2 T/CUMM (4-12)
[2022-04-06 05:25] LABS: Hematocrit 28.9 VOL% (35.7-47.0)
[2022-04-06 05:29] LABS: Hypochromia Slight; Lymphocytes 18 % (20-55); Microcytosis Slight; Ovalocytes Slight; Platelet Estimate Decreased; Total Cells Counted 100
[2022-04-06] MEDS: INSULIN REGULAR 100 UNIT/ML SUBCUT SCH ×4 (07:26→22:00)
[2022-04-06] MEDS: busPIRone 15 MG TABLET PO SCH ×2 (08:39→21:59)
[2022-04-06] MEDS: PANTOPRAZOLE 40 MG TABLET PO SCH (08:39)
[2022-04-06] MEDS: tiZANidine 4 MG TABLET PO SCH ×2 (08:40→22:00)
[2022-04-06] MEDS: FERROUS SULFATE 325 MG TABLET PO SCH (08:40)
[2022-04-06] MEDS: ASCORBIC ACID 500 MG TABLET PO SCH (08:40)
[2022-04-06] MEDS: CYANOCOBALAMIN 500 MCG TABLET PO SCH (08:40)
[2022-04-06] MEDS: oxyCODONE/ACETAMINOPHEN 5-325 MG TABLET PO SCH ×3 (08:41→21:59)
[2022-04-06] MEDS: rOPINIRole 1 MG TABLET PO SCH (21:59)
[2022-04-06] MEDS: MELATONIN 3 MG TABLET PO SCH (21:59)
[2022-04-06] MEDS: traZODone 50 MG TABLET PO SCH (22:00)
[2022-04-06] MEDS: CHOLECALCIFEROL 1,000 UNIT TABLET PO SCH (22:00)
[2022-04-07] MEDS: ALBUTEROL/IPRATROPIUM 3 ML NEB RESP TX SCH ×4 (00:56→19:06)
[2022-04-07 04:59] LABS: Calcium 9.9 MG/DL (8.5-10.1); Potassium 3.5 MMOL/L (3.5-5.1)
[2022-04-07 05:16] LABS: Hematocrit 28.1 VOL% (35.7-47.0); Immature Granulocytes % 3.8 %; Immature Granulocytes Absolute 0.13 #; Lymphocytes # 0.8 10*3/uL (1.4-4.0); Lymphocytes % 23.7 % (21.3-54.2); Mean Corpuscular HGB Conc 28.5 GM/DL (32-36); Mean Corpuscular Volume 80.5 FL (87-102); Mean Platelet Volume 10.9 FL (9.6-12.0); Monocytes # 0.2 10*3/uL (0.11-0.8); Monocytes % 5.3 % (1.7-12.7); Neutrophils % 67.2 % (38.7-73.9); Platelet Count 86 T/CUMM (130-400); Red Blood Count 3.49 MC/CUMM (3.8-5.5); Red Cell Distribution Width 16.2 % (9.3-17.3); White Blood Count 3.4 T/CUMM (4-12)
[2022-04-07 05:28] LABS: Band Neutrophils 1 % (0-10); Hypochromia Slight; Lymphocytes 19 % (20-55); Microcytosis Slight; Ovalocytes Slight; Platelet Estimate Decreased; Total Cells Counted 100
[2022-04-07] MEDS: INSULIN REGULAR 100 UNIT/ML SUBCUT SCH ×4 (08:26→21:37)
[2022-04-07] MEDS: LOPERAMIDE 2 MG CAPSULE PO PRN ×2 (10:40→17:07)
[2022-04-07] MEDS: oxyCODONE/ACETAMINOPHEN 5-325 MG TABLET PO SCH ×3 (10:40→21:36)
[2022-04-07] MEDS: busPIRone 15 MG TABLET PO SCH ×2 (10:41→21:36)
[2022-04-07] MEDS: FERROUS SULFATE 325 MG TABLET PO SCH (10:41)
[2022-04-07] MEDS: CYANOCOBALAMIN 500 MCG TABLET PO SCH (10:41)
[2022-04-07] MEDS: ASCORBIC ACID 500 MG TABLET PO SCH (10:41)
[2022-04-07] MEDS: PANTOPRAZOLE 40 MG TABLET PO SCH (10:41)
[2022-04-07] MEDS: tiZANidine 4 MG TABLET PO SCH ×2 (10:42→21:37)
[2022-04-07] MEDS: NYSTATIN CREAM 15 GM TUBE TOP SCH ×2 (10:43→21:38)
[2022-04-07] MEDS: LACTATED RINGERS 1,000 ML IV SCH ×2 (10:43→23:54)
[2022-04-07] MEDS: rOPINIRole 1 MG TABLET PO SCH (21:37)
[2022-04-07] MEDS: MELATONIN 3 MG TABLET PO SCH (21:37)
[2022-04-07] MEDS: traZODone 50 MG TABLET PO SCH (21:37)
[2022-04-07] MEDS: CHOLECALCIFEROL 1,000 UNIT TABLET PO SCH (21:37)
[2022-04-08] MEDS: ALBUTEROL/IPRATROPIUM 3 ML NEB RESP TX SCH ×4 (00:12→19:42)
[2022-04-08 04:37] LABS: Hematocrit 26.7 VOL% (35.7-47.0); Hemoglobin 7.6 GM/DL (12.0-16.0); Immature Granulocytes % 2.4 %; Immature Granulocytes Absolute 0.07 #; Lymphocytes # 1.1 10*3/uL (1.4-4.0); Lymphocytes % 36.4 % (21.3-54.2); Mean Corpuscular HGB Conc 28.5 GM/DL (32-36); Mean Corpuscular Volume 80.9 FL (87-102); Mean Platelet Volume 10.3 FL (9.6-12.0); Monocytes # 0.2 10*3/uL (0.11-0.8); Monocytes % 6.1 % (1.7-12.7); Neutrophils % 55.1 % (38.7-73.9); Platelet Count 90 T/CUMM (130-400); Red Cell Distribution Width 15.9 % (9.3-17.3)
[2022-04-08 04:54] LABS: Calcium 9.3 MG/DL (8.5-10.1)
[2022-04-08 04:59] LABS: Atypical Lymphocytes Few; Band Neutrophils 1 % (0-10); Lymphocytes 40 % (20-55); Total Cells Counted 100
[2022-04-08 05:00] LABS: Hypochromia Slight; Microcytosis Slight; Ovalocytes Few
[2022-04-08 05:01] LABS: Platelet Estimate Decreased; Tear Drop Cells Slight
[2022-04-08] MEDS: INSULIN REGULAR 100 UNIT/ML SUBCUT SCH ×4 (07:54→22:23)
[2022-04-08 07:58] LABS: % Iron Saturation 21.7 % (18-50)
[2022-04-08] MEDS: FERROUS SULFATE 325 MG TABLET PO SCH (08:01)
[2022-04-08] MEDS: CYANOCOBALAMIN 500 MCG TABLET PO SCH (08:02)
[2022-04-08] MEDS: NYSTATIN CREAM 15 GM TUBE TOP SCH ×2 (08:02→22:23)
[2022-04-08] MEDS: tiZANidine 4 MG TABLET PO SCH ×2 (08:02→22:22)
[2022-04-08] MEDS: busPIRone 15 MG TABLET PO SCH ×2 (08:02→22:15)
[2022-04-08] MEDS: oxyCODONE/ACETAMINOPHEN 5-325 MG TABLET PO SCH ×3 (08:02→22:14)
[2022-04-08] MEDS: ASCORBIC ACID 500 MG TABLET PO SCH (08:02)
[2022-04-08] MEDS: PANTOPRAZOLE 40 MG TABLET PO SCH (08:02)
[2022-04-08] MEDS: LACTATED RINGERS 1,000 ML IV SCH (15:02)
[2022-04-08] MEDS: MELATONIN 3 MG TABLET PO SCH (22:12)
[2022-04-08] MEDS: rOPINIRole 1 MG TABLET PO SCH (22:12)
[2022-04-08] MEDS: CHOLECALCIFEROL 1,000 UNIT TABLET PO SCH (22:15)
[2022-04-08] MEDS: traZODone 50 MG TABLET PO SCH (22:22)
[2022-04-09] MEDS: ALBUTEROL/IPRATROPIUM 3 ML NEB RESP TX SCH ×2 (01:08→08:45)
[2022-04-09] MEDS: LACTATED RINGERS 1,000 ML IV SCH (04:29)
[2022-04-09 06:17] LABS: Calcium 9.7 MG/DL (8.5-10.1); Osmolality,Calculated 292.1 MOS/KG (273-304); Potassium 4.2 MMOL/L (3.5-5.1)
[2022-04-09 06:44] LABS: Eosinophils % 0.3 % (0.00-10.9); Immature Granulocytes % 6.2 %; Immature Granulocytes Absolute 0.19 #; Lymphocytes # 0.7 10*3/uL (1.4-4.0); Lymphocytes % 21.8 % (21.3-54.2); Mean Corpuscular HGB Conc 28.3 GM/DL (32-36); Mean Corpuscular Volume 79.9 FL (87-102); Mean Platelet Volume 11.5 FL (9.6-12.0); Monocytes # 0.3 10*3/uL (0.11-0.8); Monocytes % 10.1 % (1.7-12.7); Neutrophils % 61.6 % (38.7-73.9); Platelet Count 95 T/CUMM (130-400); Red Blood Count 3.54 MC/CUMM (3.8-5.5); White Blood Count 3.1 T/CUMM (4-12)
[2022-04-09 06:45] LABS: Hematocrit 28.3 VOL% (35.7-47.0)
[2022-04-09 06:53] LABS: Band Neutrophils 1 % (0-10); Lymphocytes 24 % (20-55); Microcytosis Slight; Ovalocytes 1+; Total Cells Counted 100
[2022-04-09 06:54] LABS: Platelet Estimate Decreased
[2022-04-09] MEDS: busPIRone 15 MG TABLET PO SCH (09:17)
[2022-04-09] MEDS: PANTOPRAZOLE 40 MG TABLET PO SCH (09:18)
[2022-04-09] MEDS: ASCORBIC ACID 500 MG TABLET PO SCH (09:18)
[2022-04-09] MEDS: tiZANidine 4 MG TABLET PO SCH (09:19)
[2022-04-09] MEDS: FERROUS SULFATE 325 MG TABLET PO SCH (09:19)
[2022-04-09] MEDS: CYANOCOBALAMIN 500 MCG TABLET PO SCH (09:19)
[2022-04-09] MEDS: oxyCODONE/ACETAMINOPHEN 5-325 MG TABLET PO SCH (09:20)
[2022-04-09] MEDS: INSULIN REGULAR 100 UNIT/ML SUBCUT SCH ×2 (09:20→12:03)
[2022-04-09] MEDS: NYSTATIN CREAM 15 GM TUBE TOP SCH (09:21)
[2022-04-09 12:06] VITALS: BP 132/45
== END 2022-04-09 13:22 | disposition home health service (06) | DRG 194 ==
LOC: N.ED 13:24 → N.EDINP 16:24 → SUATTDRO 16:24 → N.TELEN 18:01
PROVIDERS: ADMIT Hospitalist; ATTEND Emergency Medicine